=== PATIENT | female | born 1940 | race Caucasian/White ===

== ENCOUNTER 2018-03-03 10:22 | Outpatient (CLI) | payer MEDICARE, OTHER ==
[2018-03-03] VITALS (14 sets, daily range): BP systolic 90–149; BP diastolic 52–87
== END 2018-03-03 23:59 | disposition home or self-care (01) ==
LOC: CARD DIAG 10:22
PROVIDERS: ATTEND Internal Medicine Cardiovascular Disease
DX: R55 Syncope and collapse (principal)
CPT/HCPCS: 93660

== ENCOUNTER 2018-07-10 13:45 | Observation (INO) | payer MEDICARE, OTHER ==
[~2018-07-10] VITALS: Ht 162.6 cm; Wt 55.0 kg
[2018-07-10] MEDS ORDERED: mag hydrox/Alum hydrox/simeth 30ml oral suspension PO ONE (14:45)
[2018-07-10] MEDS ORDERED: normal saline 1000ml 1,000 ML IV ONE (14:45)
[2018-07-10] MEDS ORDERED: ondansetron/PF 4mg/2ml inj IV ONE (14:45)
[2018-07-10] MEDS ORDERED: LIDOcaine Viscous 15ml cup PO ONE (14:45)
[2018-07-10 15:14] LABS: BASOPHILS % (AUTO) 0.5 % (0-1); EOSINOPHILS % (AUTO) 0.6 % (0-6); HEMATOCRIT 34.5 % (35.0-45.0); HEMOGLOBIN 11.9 g/dl (12.0-16.0); LYMPHOCYTES # (AUTO) 0.5 X10'3 (1.1-4.8); LYMPHOCYTES % (AUTO) 8.2 % (21-51); MEAN CORPUSCULAR HEMOGLOBIN 30.5 PG (27.0-31.0); MEAN CORPUSCULAR HGB CONC 34.6 g/dL (33.0-36.5); MEAN CORPUSCULAR VOLUME 88.3 FL (78-98); MONOCYTES # (AUTO) 0.3 X10'3 (0-0.9); MONOCYTES % (AUTO) 5.2 % (2-12); NEUTROPHILS # (AUTO) 5.4 X10'3 (1.8-7.7); NEUTROPHILS % (AUTO) 85.5 % (42-75); PLATELET COUNT 190 X10'3 (140-440); RED BLOOD COUNT 3.91 X10'6 (4.20-5.60); RED CELL DISTRIBUTION WIDTH 15.8 % (11.5-14.5); WHITE BLOOD COUNT 6.3 X10'3 (4.5-11.0)
[2018-07-10 15:30] LABS: ALANINE AMINOTRANSFERASE 15 U/L (12-78); ALBUMIN 3.8 G/DL (3.4-5.0); ALKALINE PHOSPHATASE 106 IU/L (46-116); ANION GAP 9 (8-16); ASPARTATE AMINO TRANSFERASE 59 U/L (10-37); BILIRUBIN,TOTAL 0.5 MG/DL (0.1-1.0); BLOOD UREA NITROGEN 47 MG/DL (7-18); CALCIUM 10.1 MG/DL (8.5-10.1); CHLORIDE 103 MMOL/L (99-107); CREATININE 2.48 MG/DL (0.40-0.90); SODIUM 139 MMOL/L (135-145); TOTAL CARBON DIOXIDE 26.6 MMOL/L (24-32); TOTAL PROTEIN 7.5 G/DL (6.4-8.2); eGFR 19 ML/MIN
[2018-07-10 15:31] LABS: GLUCOSE 129 MG/DL (70-104)
[2018-07-10 15:32] LABS: LACTIC SEPSIS 1.2 MMOL/L (0.4-2.0)
[2018-07-10 16:20] LABS: TROPONIN I < 0.04 NG/ML (0.0-0.05)
[2018-07-10 16:24] LABS: CLARITY,URINE CLEAR (Clear); COLOR,URINE YELLOW (Yellow); GLUCOSE, URINE NEGATIVE (Neg); KETONES,URINE NEGATIVE (Neg); LEUKOCYTE ESTERASE ,URINE NEGATIVE (Neg); NITRITES, URINE NEGATIVE (Neg); OCCULT BLOOD,URINE NEGATIVE (Neg); PROTEIN,URINE >=300 mg/dl (Neg); UROBILINOGEN,URINE 0.2 E.U/dL (0.2-1.0)
[2018-07-10 16:25] LABS: UA COLLECTION TYPE CLN CATCH MIDSTREAM
[2018-07-10 16:29] LABS: BACTERIA,URINE NONE SEEN /HPF (Neg); MUCUS STRANDS FEW /LPF (Neg); RBC,URINE 0-2 /HPF (0-2); SQUAMOUS EPITHELIAL CELL,UR FEW /LPF (FEW); WBC,URINE 0-4 /HPF (0-4)
[2018-07-10] MEDS: normal saline 1000ml 1,000 ML IV SCH (17:01)
[2018-07-10] MEDS ORDERED: potassium Cl 40MEQ/NS 500ml 500 ML IV PRN (17:05)
[2018-07-10] MEDS ORDERED: potassium CL 10mEq/100ml bag 100 ML IV PRN (17:05)
[2018-07-10] MEDS ORDERED: potassium Cl 20 mEq SR tablet PO PRN ×2 (17:05)
[2018-07-10] MEDS ORDERED: mag hydrox/Alum hydrox/simeth 30ml oral suspension PO PRN (17:05)
[2018-07-10] MEDS ORDERED: magnesium hydroxide 30ml (MOM) UD suspension PO PRN (17:05)
[2018-07-10] MEDS ORDERED: ondansetron/PF 4mg/2ml inj IV PRN (17:05)
[2018-07-10] MEDS ORDERED: magnesium Cl slow-release 64mg tablet PO PRN (17:05)
[2018-07-10] MEDS ORDERED: magnesium 4gm in 100ml NS 100 ML IV PRN (17:05)
[2018-07-10] MEDS ORDERED: magnesium 2GM in 50ml NS 50 ML IV PRN (17:05)
[2018-07-10] MEDS ORDERED: ATOR20TA PO (17:12)
--- NOTE | 2018-07-10 17:31 | NUR ---
CALLED TO GIVE REPORT BUT RECEIVING NURSE UNAVAILABLE
[2018-07-10 18:00] VITALS: BP 157/78
[2018-07-10] MEDS ORDERED: hydrALAZINE 20mg/ml inj. IV PRN (19:30)
[2018-07-10] MEDS ORDERED: amLODIPine 5mg tablet PO ONE (19:30)
[2018-07-10] MEDS: heparin, porcine 5000 units/ml vial SQ SCH (20:16)
[2018-07-10] MEDS ORDERED: SODI650T29 PO (20:55)
[2018-07-10 22:00] VITALS: BP 157/90
[2018-07-10] MEDS ORDERED: CALC1CAP21 PO (23:00)
[2018-07-10] MEDS ORDERED: AMLO2.5T2 PO (23:00)
[2018-07-10] MEDS ORDERED: LOSA50TA64 PO (23:00)
[2018-07-10] MEDS ORDERED: CARB1TAB23 PO (23:00)
[2018-07-10] MEDS ORDERED: DENO60DI (23:00)
[2018-07-10] MEDS ORDERED: ASCO500C15 PO (23:00)
[2018-07-10] MEDS ORDERED: MONT10TA24 PO (23:00)
[2018-07-10] MEDS ORDERED: ESOM20CA PO (23:00)
[2018-07-10] MEDS ORDERED: POLY17PO10 PO (23:00)
[2018-07-10] MEDS ORDERED: FLAX1CAP4 PO (23:00)
[2018-07-10] MEDS ORDERED: LUTE10TA PO (23:00)
[2018-07-10] MEDS ORDERED: AMA100C PO (23:00)
[2018-07-10] MEDS ORDERED: ZEAX100P PO (23:00)
[2018-07-10] MEDS ORDERED: MULT-1085 PO (23:00)
[2018-07-10] MEDS ORDERED: [UNRECOGNIZED DRUG - OTHER] PO (23:00)
[2018-07-10] MEDS ORDERED: [UNRECOGNIZED DRUG - OTHER] PO (23:00)
[2018-07-10] MEDS ORDERED: ASPI-436 PO (23:00)
[2018-07-11] MEDS: normal saline 1000ml 1,000 ML IV SCH ×3 (03:01→21:15)
[2018-07-11 05:41] LABS: ALBUMIN 3.6 G/DL (3.4-5.0); ANION GAP 9 (8-16); BLOOD UREA NITROGEN 37 MG/DL (7-18); BUN/CREATININE RATIO 16.8 (6.6-38.0); CALCIUM 9.2 MG/DL (8.5-10.1); CHLORIDE 106 MMOL/L (99-107); MAGNESIUM 2.1 MG/DL (1.5-2.4); POTASSIUM 3.9 MMOL/L (3.5-5.1); SODIUM 139 MMOL/L (135-145); TOTAL CARBON DIOXIDE 24.2 MMOL/L (24-32); eGFR 22 ML/MIN
[2018-07-11 05:43] LABS: GLUCOSE 99 MG/DL (70-104)
[2018-07-11 06:00] VITALS: BP 162/75
[2018-07-11 06:07] LABS: HEMATOCRIT 36.6 % (35.0-45.0); HEMOGLOBIN 12.2 g/dl (12.0-16.0); RED BLOOD COUNT 4.09 X10'6 (4.20-5.60); WHITE BLOOD COUNT 5.4 X10'3 (4.5-11.0)
[2018-07-11 06:08] LABS: BASOPHILS % (AUTO) 0.6 % (0-1); EOSINOPHILS # (AUTO) 0.1 X10'3 (0-0.9); EOSINOPHILS % (AUTO) 1.1 % (0-6); LYMPHOCYTES # (AUTO) 0.5 X10'3 (1.1-4.8); MEAN CORPUSCULAR HEMOGLOBIN 29.9 PG (27.0-31.0); MEAN CORPUSCULAR HGB CONC 33.4 g/dL (33.0-36.5); MEAN CORPUSCULAR VOLUME 89.5 FL (78-98); MEAN PLATELET VOLUME 7.1 FL (7.4-10.4); MONOCYTES # (AUTO) 0.2 X10'3 (0-0.9); MONOCYTES % (AUTO) 3.8 % (2-12); NEUTROPHILS # (AUTO) 4.6 X10'3 (1.8-7.7); NEUTROPHILS % (AUTO) 84.5 % (42-75); PLATELET COUNT 182 X10'3 (140-440); RED CELL DISTRIBUTION WIDTH 15.5 % (11.5-14.5)
--- NOTE | 2018-07-11 06:13 | NUR ---
report given to christie Wood.
[2018-07-11] MEDS: K and/or MAG REPLACEMENT MC SCH (06:54)
[2018-07-11] MEDS: heparin, porcine 5000 units/ml vial SQ SCH ×2 (07:48→21:04)
[2018-07-11] MEDS ORDERED: amLODIPine 5mg tablet PO SCH (08:00)
[2018-07-11 10:33] VITALS: BP 161/71
[2018-07-11] MEDS ORDERED: hyDRALAzine 10mg tablet PO PRN (11:55)
[2018-07-11] MEDS: carbidoba-levodopa 25-100mg tablet PO SCH ×2 (14:16→21:03)
[2018-07-11 18:07] VITALS: BP 137/63
--- NOTE | 2018-07-11 18:43 | NUR ---
Problems reprioritized. Patient report given, questions answered & plan of care reviewed with Karissa FERRARI.
[2018-07-11] MEDS ORDERED: ASCORBIC ACID PO SCH (20:00)
[2018-07-11] MEDS ORDERED: OMEGA3 PO SCH (21:00)
[2018-07-11] MEDS ORDERED: FATTY ACID PO SCH (21:00)
[2018-07-11] MEDS ORDERED: FLAXSEED PO SCH (21:00)
[2018-07-11] MEDS ORDERED: [UNRECOGNIZED DRUG - OTHER] PO SCH (21:00)
[2018-07-11] MEDS ORDERED: montelukast 10mg tablet PO SCH (21:00)
[2018-07-11] MEDS: sodium bicarbonate 650mg tablet PO SCH (21:02)
[2018-07-11] MEDS: ascorbic acid 500mg tablet PO SCH (21:03)
[2018-07-11] MEDS: amantadine 100 MG capsule PO SCH (21:03)
[2018-07-11 22:00] VITALS: BP 169/74
[2018-07-12 05:59] LABS: BASOPHILS % (AUTO) 0.7 % (0-1); EOSINOPHILS # (AUTO) 0.1 X10'3 (0-0.9); EOSINOPHILS % (AUTO) 2.1 % (0-6); HEMATOCRIT 32.7 % (35.0-45.0); HEMOGLOBIN 11.1 g/dl (12.0-16.0); LYMPHOCYTES # (AUTO) 0.8 X10'3 (1.1-4.8); LYMPHOCYTES % (AUTO) 14.9 % (21-51); MEAN CORPUSCULAR HEMOGLOBIN 29.8 PG (27.0-31.0); MEAN CORPUSCULAR HGB CONC 33.8 g/dL (33.0-36.5); MEAN CORPUSCULAR VOLUME 88.1 FL (78-98); MEAN PLATELET VOLUME 6.9 FL (7.4-10.4); MONOCYTES # (AUTO) 0.3 X10'3 (0-0.9); NEUTROPHILS # (AUTO) 3.9 X10'3 (1.8-7.7); NEUTROPHILS % (AUTO) 76.3 % (42-75); PLATELET COUNT 175 X10'3 (140-440); RED BLOOD COUNT 3.72 X10'6 (4.20-5.60); WHITE BLOOD COUNT 5.1 X10'3 (4.5-11.0)
[2018-07-12 06:00] VITALS: BP 149/66
[2018-07-12 06:14] LABS: ALBUMIN 3.2 G/DL (3.4-5.0); ANION GAP 10 (8-16); BLOOD UREA NITROGEN 34 MG/DL (7-18); CALCIUM 8.2 MG/DL (8.5-10.1); CHLORIDE 108 MMOL/L (99-107); CREATININE 2.27 MG/DL (0.40-0.90); MAGNESIUM 2.1 MG/DL (1.5-2.4); POTASSIUM 3.9 MMOL/L (3.5-5.1); SODIUM 140 MMOL/L (135-145); TOTAL CARBON DIOXIDE 21.7 MMOL/L (24-32); eGFR 21 ML/MIN
[2018-07-12 06:17] LABS: GLUCOSE 91 MG/DL (70-104)
[2018-07-12] MEDS ORDERED: pantoprazole 40mg Tablet.DR PO SCH (07:30)
[2018-07-12] MEDS ORDERED: atorvastatin 20mg tablet PO SCH (08:00)
[2018-07-12] MEDS ORDERED: non-formulary drug (Atorvastatin Calcium (Lipitor) 1 TAB) PO SCH (08:00)
[2018-07-12] MEDS ORDERED: [UNRECOGNIZED DRUG - OTHER] PO SCH (08:00)
[2018-07-12] MEDS ORDERED: non-formulary drug (Multivitamin (Multi Vitamin Daily) 1 EACH) PO SCH (08:00)
[2018-07-12] MEDS ORDERED: amLODIPine 2.5mg tablet PO SCH (08:00)
[2018-07-12] MEDS ORDERED: non-formulary drug (Esomeprazole Magnesium (Nexium) 1 CAP) PO SCH (08:00)
[2018-07-12] MEDS ORDERED: ZEAXANTHIN PO SCH (08:00)
[2018-07-12] MEDS ORDERED: multivitamins, therapeutics tablet PO SCH (08:00)
[2018-07-12] MEDS: K and/or MAG REPLACEMENT MC SCH (08:00)
[2018-07-12] MEDS ORDERED: [UNRECOGNIZED DRUG - OTHER] PO SCH (08:00)
[2018-07-12] MEDS: carbidoba-levodopa 25-100mg tablet PO SCH ×2 (08:43→14:17)
[2018-07-12] MEDS: sodium bicarbonate 650mg tablet PO SCH (08:44)
[2018-07-12] MEDS: ascorbic acid 500mg tablet PO SCH (08:44)
[2018-07-12] MEDS: heparin, porcine 5000 units/ml vial SQ SCH (08:46)
[2018-07-12] MEDS: normal saline 1000ml 1,000 ML IV SCH (09:01)
[2018-07-12] MEDS: amantadine 100 MG capsule PO SCH (09:26)
[2018-07-12 14:20] VITALS: BP 158/86
[2018-07-12] MEDS ORDERED: CARB1TAB23 PO (16:02)
--- NOTE | 2018-07-12 17:38 | NUR ---
Pt DC home w/family. VSS, denies pain, SOB, resp distress, N/V, vertigo at DC. All DC documents signed. DC re-cap of pt stay/medications given to pt. pt escorted JACE in WC by [facility] staff . Pt transferred safely into personal vehicle to go home. pt thanked [facility] staff for her care.
== END 2018-07-12 17:20 | disposition home health service (06) ==
LOC: ER 13:45 → ORTHO 4S 17:39 → CMPBEDREQ 07-11 19:40
PROVIDERS: ADMIT Hospitalist; ATTEND Hospitalist
DX: N17.9 Acute kidney failure, unspecified (principal); I12.9 Hypertensive chronic kidney disease with stage 1 through stage 4 chronic kidney disease, or unspecified chronic kidney disease; N18.4 Chronic kidney disease, stage 4 (severe); G20 Parkinson's disease; C90.00 Multiple myeloma not having achieved remission; Z86.73 Personal history of transient ischemic attack (TIA), and cerebral infarction without residual deficits; N39.0 Urinary tract infection, site not specified; R42 Dizziness and giddiness; R41.0 Disorientation, unspecified; Z79.82 Long term (current) use of aspirin; Z79.899 Other long term (current) drug therapy
CPT/HCPCS: 36415; 70544; 70551; 71045; 80048; 80053; 81001; 82140; 83605; 83735; 84484; 85025; 85610; 87070; 93005; 96361; 96372; 96374; 97116; 97161; 97530; 99284; G0378; J1644; J2405; J7030

== ENCOUNTER 2018-07-27 18:23 | Emergency (ER) | payer MEDICARE, OTHER ==
[~2018-07-27] VITALS: Ht 162.6 cm; Wt 58.6 kg
[~2018-07-27 18:23] MED LIST: AMA100C PO; AMLO2.5T2 PO; ASCO500C15 PO; ASPI-436 PO; ATOR20TA PO; CALC1CAP21 PO; CARB1TAB23 PO; DENO60DI; ESOM20CA PO; FLAX1CAP4 PO; LUTE10TA PO; MONT10TA24 PO; MULT-1085 PO; POLY17PO10 PO; SODI650T29 PO; ZEAX100P PO; [UNRECOGNIZED DRUG - OTHER] PO; [UNRECOGNIZED DRUG - OTHER] PO
--- NOTE | 2018-07-27 18:53 | NUR ---
Spoke to ALINA Gray regarding patient situation. CT head ordered.
[2018-07-27 21:18] VITALS: BP 178/88
== END 2018-07-27 21:21 | disposition home or self-care (01) ==
LOC: ER 18:24
DX: S09.90XA Unspecified injury of head, initial encounter (principal); N18.9 Chronic kidney disease, unspecified; G20 Parkinson's disease; Z79.82 Long term (current) use of aspirin; Z79.899 Other long term (current) drug therapy; Z88.6 Allergy status to analgesic agent; Z88.5 Allergy status to narcotic agent; Z88.0 Allergy status to penicillin; Z88.8 Allergy status to other drugs, medicaments and biological substances; W01.198A Fall on same level from slipping, tripping and stumbling with subsequent striking against other object, initial encounter; Y93.89 Activity, other specified; Y92.89 Other specified places as the place of occurrence of the external cause; Y99.9 Unspecified external cause status
CPT/HCPCS: 70450; 99284

== ENCOUNTER 2018-07-27 22:31 | Emergency (ER) | payer MEDICARE, OTHER ==
[~2018-07-27] VITALS: Ht 162.6 cm; Wt 58.1 kg
[2018-07-28 01:11] LABS: BASOPHILS # (AUTO) 0.1 X10'3 (0-0.2); BASOPHILS % (AUTO) 0.6 % (0-1); EOSINOPHILS # (AUTO) 0.1 X10'3 (0-0.9); HEMATOCRIT 34.5 % (35.0-45.0); HEMOGLOBIN 11.7 g/dl (12.0-16.0); LYMPHOCYTES # (AUTO) 0.8 X10'3 (1.1-4.8); LYMPHOCYTES % (AUTO) 9.7 % (21-51); MEAN CORPUSCULAR HGB CONC 33.8 g/dL (33.0-36.5); MEAN CORPUSCULAR VOLUME 88.7 FL (78-98); MEAN PLATELET VOLUME 7.2 FL (7.4-10.4); MONOCYTES # (AUTO) 0.4 X10'3 (0-0.9); MONOCYTES % (AUTO) 5.2 % (2-12); NEUTROPHILS # (AUTO) 6.5 X10'3 (1.8-7.7); NEUTROPHILS % (AUTO) 83.5 % (42-75); PLATELET COUNT 198 X10'3 (140-440); RED BLOOD COUNT 3.89 X10'6 (4.20-5.60); RED CELL DISTRIBUTION WIDTH 15.6 % (11.5-14.5); WHITE BLOOD COUNT 7.8 X10'3 (4.5-11.0)
[2018-07-28 01:14] LABS: ALANINE AMINOTRANSFERASE 13 U/L (12-78); ALBUMIN 3.8 G/DL (3.4-5.0); ALBUMIN/GLOBULIN RATIO 1.1 (1.1-1.5); ALKALINE PHOSPHATASE 102 IU/L (46-116); ANION GAP 7 (8-16); ASPARTATE AMINO TRANSFERASE 51 U/L (10-37); BILIRUBIN,TOTAL 0.5 MG/DL (0.1-1.0); BLOOD UREA NITROGEN 66 MG/DL (7-18); BUN/CREATININE RATIO 21.6 (6.6-38.0); CALCIUM 9.3 MG/DL (8.5-10.1); CHLORIDE 102 MMOL/L (99-107); CREATININE 3.05 MG/DL (0.40-0.90); POTASSIUM 3.7 MMOL/L (3.5-5.1); SODIUM 137 MMOL/L (135-145); TOTAL CARBON DIOXIDE 28.5 MMOL/L (24-32); TOTAL PROTEIN 7.4 G/DL (6.4-8.2); eGFR 15 ML/MIN
[2018-07-28 01:16] LABS: GLUCOSE 134 MG/DL (70-104)
[2018-07-28 01:17] LABS: PARTIAL THROMBOPLASTIN TIME 28 SECONDS (22-32); TROPONIN I < 0.04 NG/ML (0.0-0.05)
[2018-07-28 01:18] LABS: ETHANOL < 0.010 GM/DL (0.0-0.010)
[2018-07-28 01:54] VITALS: BP 164/79
[2018-07-28 02:20] LABS: CLARITY,URINE CLEAR (Clear); COLOR,URINE YELLOW (Yellow); GLUCOSE, URINE NEGATIVE (Neg); KETONES,URINE NEGATIVE (Neg); LEUKOCYTE ESTERASE ,URINE NEGATIVE (Neg); NITRITES, URINE NEGATIVE (Neg); OCCULT BLOOD,URINE NEGATIVE (Neg); PROTEIN,URINE 100 mg/dl (Neg); UROBILINOGEN,URINE 0.2 E.U/dL (0.2-1.0)
[2018-07-28 02:21] LABS: UA COLLECTION TYPE VOIDED
[2018-07-28 02:38] LABS: BACTERIA,URINE NONE SEEN /HPF (Neg); RBC,URINE NONE SEEN /HPF (0-2); SQUAMOUS EPITHELIAL CELL,UR FEW /LPF (FEW); WBC,URINE 0-4 /HPF (0-4)
== END 2018-07-28 02:21 | disposition home or self-care (01) ==
LOC: ER 22:31
DX: S00.03XA Contusion of scalp, initial encounter (principal); G20 Parkinson's disease; N18.9 Chronic kidney disease, unspecified; Z79.82 Long term (current) use of aspirin; Z79.899 Other long term (current) drug therapy; Z88.6 Allergy status to analgesic agent; Z88.0 Allergy status to penicillin; Z88.5 Allergy status to narcotic agent; Z88.8 Allergy status to other drugs, medicaments and biological substances; W01.198A Fall on same level from slipping, tripping and stumbling with subsequent striking against other object, initial encounter; Y93.89 Activity, other specified; Y92.89 Other specified places as the place of occurrence of the external cause; Y99.9 Unspecified external cause status
CPT/HCPCS: 36415; 70450; 71045; 80053; 80320; 81001; 84484; 85025; 85610; 85730; 99284

== ENCOUNTER 2018-08-25 10:28 | Emergency (ER) | payer MEDICARE, OTHER ==
[~2018-08-25] VITALS: Ht 162.6 cm; Wt 57.0 kg
[2018-08-25 11:56] LABS: BASOPHILS % (AUTO) 0.3 % (0-1); EOSINOPHILS % (AUTO) 0.5 % (0-6); HEMATOCRIT 31.8 % (35.0-45.0); HEMOGLOBIN 10.7 g/dl (12.0-16.0); LYMPHOCYTES # (AUTO) 0.5 X10'3 (1.1-4.8); LYMPHOCYTES % (AUTO) 5.6 % (21-51); MEAN CORPUSCULAR HEMOGLOBIN 30.2 PG (27.0-31.0); MEAN CORPUSCULAR HGB CONC 33.7 g/dL (33.0-36.5); MEAN CORPUSCULAR VOLUME 89.7 FL (78-98); MEAN PLATELET VOLUME 7.7 FL (7.4-10.4); MONOCYTES # (AUTO) 0.5 X10'3 (0-0.9); MONOCYTES % (AUTO) 5.4 % (2-12); NEUTROPHILS # (AUTO) 7.7 X10'3 (1.8-7.7); NEUTROPHILS % (AUTO) 88.2 % (42-75); PLATELET COUNT 206 X10'3 (140-440); RED BLOOD COUNT 3.54 X10'6 (4.20-5.60); RED CELL DISTRIBUTION WIDTH 15.7 % (11.5-14.5); WHITE BLOOD COUNT 8.8 X10'3 (4.5-11.0)
[2018-08-25 12:08] LABS: ALANINE AMINOTRANSFERASE 22 U/L (12-78); ALBUMIN 3.7 G/DL (3.4-5.0); ALBUMIN/GLOBULIN RATIO 1.1 (1.1-1.5); ALKALINE PHOSPHATASE 131 IU/L (46-116); ANION GAP 9 (8-16); ASPARTATE AMINO TRANSFERASE 86 U/L (10-37); BILIRUBIN,TOTAL 0.9 MG/DL (0.1-1.0); BLOOD UREA NITROGEN 47 MG/DL (7-18); BUN/CREATININE RATIO 15.9 (6.6-38.0); CALCIUM 9.5 MG/DL (8.5-10.1); CHLORIDE 106 MMOL/L (99-107); CREATININE 2.95 MG/DL (0.40-0.90); POTASSIUM 4.1 MMOL/L (3.5-5.1); SODIUM 141 MMOL/L (135-145); TOTAL CARBON DIOXIDE 25.7 MMOL/L (24-32); TOTAL PROTEIN 7.2 G/DL (6.4-8.2); eGFR 15 ML/MIN
[2018-08-25 12:09] LABS: GLUCOSE 97 MG/DL (70-104)
[2018-08-25] MEDS ORDERED: morphine 4 MG/ML inj SYRINge IV ONE (13:05)
[2018-08-25 15:07] VITALS: BP 158/83
[2018-08-25] MEDS ORDERED: LIDOcaine 5% patch TP STA (15:43)
[2018-08-25] MEDS ORDERED: LIDO700A32 TP (15:58)
== END 2018-08-25 16:14 | disposition home or self-care (01) ==
LOC: ER 10:29
DX: R10.9 Unspecified abdominal pain (principal); G20 Parkinson's disease; R74.0 Nonspecific elevation of levels of transaminase and lactic acid dehydrogenase [LDH]; N18.9 Chronic kidney disease, unspecified; Z79.899 Other long term (current) drug therapy; Z79.82 Long term (current) use of aspirin; Z88.5 Allergy status to narcotic agent; Z88.6 Allergy status to analgesic agent; Z88.8 Allergy status to other drugs, medicaments and biological substances; Z88.1 Allergy status to other antibiotic agents; W18.49XA Other slipping, tripping and stumbling without falling, initial encounter; Y93.89 Activity, other specified; Y92.89 Other specified places as the place of occurrence of the external cause; Y99.9 Unspecified external cause status
CPT/HCPCS: 36415; 74176; 80053; 85025; 85610; 99284; J2270

== ENCOUNTER 2018-09-01 03:56 | Emergency (ER) | payer MEDICARE, OTHER ==
[~2018-09-01] VITALS: Ht 162.6 cm; Wt 64.0 kg
[~2018-09-01 03:56] MED LIST changes: +LIDO700A32 TP
[2018-09-01] MEDS ORDERED: ALBU18HF2 INH (04:07)
[2018-09-01] MEDS ORDERED: DOXY100C43 PO (04:07)
[2018-09-01 04:53] VITALS: BP 142/86
== END 2018-09-01 05:21 | disposition home or self-care (01) ==
LOC: ER 03:57
DX: J20.9 Acute bronchitis, unspecified (principal); N18.9 Chronic kidney disease, unspecified; G20 Parkinson's disease; Z88.6 Allergy status to analgesic agent; Z79.899 Other long term (current) drug therapy; Z88.8 Allergy status to other drugs, medicaments and biological substances; Z88.0 Allergy status to penicillin; Z79.82 Long term (current) use of aspirin; Z87.440 Personal history of urinary (tract) infections
CPT/HCPCS: 99284

== ENCOUNTER 2018-09-09 23:10 | Inpatient (IN) | payer MEDICARE, OTHER ==
[~2018-09-09] VITALS: Ht 167.6 cm; Wt 60.0 kg
[~2018-09-09 23:10] MED LIST changes: +ALBU18HF2 INH; +DOXY100C43 PO
[2018-09-10] VITALS (9 sets, daily range): BP systolic 123–166; BP diastolic 45–83
[2018-09-10 00:09] LABS: BASOPHILS % (AUTO) 0.1 % (0-1); EOSINOPHILS % (AUTO) 0 % (0-6); HEMATOCRIT 23.5 % (35.0-45.0); LYMPHOCYTES # (AUTO) 0.3 X10'3 (1.1-4.8); MEAN CORPUSCULAR HEMOGLOBIN 30.4 PG (27.0-31.0); MEAN CORPUSCULAR HGB CONC 34.1 g/dL (33.0-36.5); MEAN CORPUSCULAR VOLUME 89.2 FL (78-98); MEAN PLATELET VOLUME 7.6 FL (7.4-10.4); MONOCYTES # (AUTO) 0.5 X10'3 (0-0.9); NEUTROPHILS # (AUTO) 15.8 X10'3 (1.8-7.7); NEUTROPHILS % (AUTO) 94.9 % (42-75); PLATELET COUNT 251 X10'3 (140-440); RED BLOOD COUNT 2.64 X10'6 (4.20-5.60); RED CELL DISTRIBUTION WIDTH 15.8 % (11.5-14.5); WHITE BLOOD COUNT 16.7 X10'3 (4.5-11.0)
[2018-09-10 00:28] LABS: ALANINE AMINOTRANSFERASE 68 U/L (12-78); ALBUMIN 2.6 G/DL (3.4-5.0); ALBUMIN/GLOBULIN RATIO 0.8 (1.1-1.5); ALKALINE PHOSPHATASE 127 IU/L (46-116); ANION GAP 16 (8-16); ASPARTATE AMINO TRANSFERASE 170 U/L (10-37); BILIRUBIN,TOTAL 0.5 MG/DL (0.1-1.0); BLOOD UREA NITROGEN 103 MG/DL (7-18); BUN/CREATININE RATIO 24.1 (6.6-38.0); CALCIUM 10.3 MG/DL (8.5-10.1); CHLORIDE 99 MMOL/L (99-107); CREATININE 4.28 MG/DL (0.40-0.90); GLUCOSE 121 MG/DL (70-104); POTASSIUM 4.8 MMOL/L (3.5-5.1); SODIUM 138 MMOL/L (135-145); TOTAL CARBON DIOXIDE 23.5 MMOL/L (24-32); TOTAL PROTEIN 5.7 G/DL (6.4-8.2); eGFR 10 ML/MIN
[2018-09-10 00:36] LABS: MAGNESIUM 3.1 MG/DL (1.5-2.4)
[2018-09-10] MEDS ORDERED: normal saline 1000ML IV soln IVB ONE (01:30)
[2018-09-10] MEDS ORDERED: aspirin 300mg supp.rect RC ONE (01:40)
[2018-09-10] MEDS ORDERED: levoFLOXACIN-Levaquin 750MG/D5 150 ML IV STA (03:14)
[2018-09-10] MEDS ORDERED: pantoprazole IV 80 MG in normal saline 100ml IV soln 100 ML IV ONE (04:20)
[2018-09-10] MEDS ORDERED: pantoprazole 40MG/NS 100ML BAG 100 ML IV ONE (04:20)
[2018-09-10] MEDS ORDERED: ESOMEPRAZOLE 40 MG VIAL IV ONE (04:25)
[2018-09-10] MEDS ORDERED: potassium CL 10mEq/100ml bag 100 ML IV PRN ×2 (04:40)
[2018-09-10] MEDS ORDERED: potassium Cl 20 mEq SR tablet PO PRN ×2 (04:40)
[2018-09-10] MEDS ORDERED: magnesium Cl slow-release 64mg tablet PO PRN (04:40)
[2018-09-10] MEDS ORDERED: magnesium 2GM in 50ml NS 50 ML IV PRN (04:40)
[2018-09-10] MEDS ORDERED: ondansetron/PF 4mg/2ml inj IV PRN (04:40)
[2018-09-10] MEDS ORDERED: magnesium 4gm in 100ml NS 100 ML IV PRN (04:40)
[2018-09-10] MEDS: normal saline 1000ml 1,000 ML IV SCH ×2 (05:28→16:36)
[2018-09-10 06:37] LABS: GASTRIC OCCULT BLOOD POSITIVE (Neg)
--- NOTE | 2018-09-10 07:00 | NUR ---
Patient in room JOSUE 346. I have received report from Caren FERRARI and had the opportunity to ask questions and assume patient care.
[2018-09-10] MEDS: K and/or MAG REPLACEMENT MC SCH (08:00)
[2018-09-10] MEDS ORDERED: AMLO5TAB4 PO (10:47)
[2018-09-10] MEDS ORDERED: CARB-87 PO (10:47)
[2018-09-10] MEDS ORDERED: SODI650T29 PO (10:48)
[2018-09-10 15:26] LABS: BASOPHILS % (AUTO) 0 % (0-1); EOSINOPHILS % (AUTO) 0 % (0-6); LYMPHOCYTES # (AUTO) 0.3 X10'3 (1.1-4.8); LYMPHOCYTES % (AUTO) 1.6 % (21-51); MEAN CORPUSCULAR HEMOGLOBIN 30.6 PG (27.0-31.0); MEAN CORPUSCULAR HGB CONC 34.5 g/dL (33.0-36.5); MEAN CORPUSCULAR VOLUME 88.7 FL (78-98); MEAN PLATELET VOLUME 7.6 FL (7.4-10.4); MONOCYTES # (AUTO) 0.4 X10'3 (0-0.9); MONOCYTES % (AUTO) 1.9 % (2-12); NEUTROPHILS % (AUTO) 96.5 % (42-75); PLATELET COUNT 195 X10'3 (140-440); RED BLOOD COUNT 2.12 X10'6 (4.20-5.60); RED CELL DISTRIBUTION WIDTH 15.6 % (11.5-14.5); WHITE BLOOD COUNT 20.7 X10'3 (4.5-11.0)
[2018-09-10 15:32] LABS: HEMATOCRIT 18.8 % (35.0-45.0); HEMOGLOBIN 6.5 g/dl (12.0-16.0)
--- NOTE | 2018-09-10 19:00 | NUR ---
pt inc urine and smear of stool pumpkin colored, turned side to side.
--- NOTE | 2018-09-10 19:00 | NUR ---
Patient in room JOSUE 346. I have received report from Jaylan Gallardo and had the opportunity to ask questions and assume patient care. Addendum: 09/10/18 at 1927 by Cyndie Merrill RN Amended: Links added.
--- NOTE | 2018-09-10 19:00 | NUR ---
Problems reprioritized. Patient report given, questions answered & plan of care reviewed with Cyndie FERRARI.
--- NOTE | 2018-09-10 19:50 | NUR ---
1st unit of blood obtained and hung. pt teaching done and started infusion. sats better with 02 in the mouth and sat monitor on left hand index finger.
[2018-09-10] MEDS ORDERED: pantoprazole 40 MG vial IV SCH (20:00)
[2018-09-10] MEDS: ESOMEPRAZOLE 40 MG VIAL IV SCH (21:20)
--- NOTE | 2018-09-10 21:25 | NUR ---
vss pt resting apperas comfortable sats up to 92-94% now.
--- NOTE | 2018-09-10 23:05 | NUR ---
blood completed no s&s of rejection.
[2018-09-11] VITALS (10 sets, daily range): BP systolic 123–181; BP diastolic 50–112
--- NOTE | 2018-09-11 00:28 | NUR ---
talked to Dr Hu regarding pt and no orders aware of h&h that she got blood. and of vitals.
--- NOTE | 2018-09-11 02:05 | NUR ---
pt inc of urine and stool skin care done and repositioned in bed for comfort.
--- NOTE | 2018-09-11 04:00 | NUR ---
pt inc of urine skin care done and turned. pt less lethargic. not answering questions but following simple clear directions with turning etc.
[2018-09-11 04:42] LABS: BASOPHILS % (AUTO) 0.1 % (0-1); EOSINOPHILS % (AUTO) 0.1 % (0-6); HEMATOCRIT 22.6 % (35.0-45.0); HEMOGLOBIN 7.8 g/dl (12.0-16.0); LYMPHOCYTES # (AUTO) 0.3 X10'3 (1.1-4.8); LYMPHOCYTES % (AUTO) 1.9 % (21-51); MEAN CORPUSCULAR HEMOGLOBIN 29.8 PG (27.0-31.0); MEAN CORPUSCULAR HGB CONC 34.6 g/dL (33.0-36.5); MEAN CORPUSCULAR VOLUME 86.1 FL (78-98); MEAN PLATELET VOLUME 7.5 FL (7.4-10.4); MONOCYTES # (AUTO) 0.5 X10'3 (0-0.9); MONOCYTES % (AUTO) 2.8 % (2-12); NEUTROPHILS % (AUTO) 95.1 % (42-75); PLATELET COUNT 174 X10'3 (140-440); RED BLOOD COUNT 2.63 X10'6 (4.20-5.60); RED CELL DISTRIBUTION WIDTH 17.7 % (11.5-14.5); WHITE BLOOD COUNT 17.9 X10'3 (4.5-11.0)
[2018-09-11 04:45] LABS: ALBUMIN 2.4 G/DL (3.4-5.0); ANION GAP 13 (8-16); BLOOD UREA NITROGEN 117 MG/DL (7-18); BUN/CREATININE RATIO 26.8 (6.6-38.0); CALCIUM 9.3 MG/DL (8.5-10.1); CHLORIDE 107 MMOL/L (99-107); CREATININE 4.37 MG/DL (0.40-0.90); GLUCOSE 101 MG/DL (70-104); POTASSIUM 4.1 MMOL/L (3.5-5.1); SODIUM 143 MMOL/L (135-145); TOTAL CARBON DIOXIDE 22.7 MMOL/L (24-32); eGFR 10 ML/MIN
[2018-09-11] MEDS: normal saline 1000ml 1,000 ML IV SCH ×2 (05:40→10:15)
--- NOTE | 2018-09-11 06:47 | NUR ---
Patient in room JOSUE 346. I have received report from VONDA LOPEZ and had the opportunity to ask questions and assume patient care.
[2018-09-11] MEDS: K and/or MAG REPLACEMENT MC SCH (08:00)
[2018-09-11] MEDS: ESOMEPRAZOLE 40 MG VIAL IV SCH ×2 (08:44→19:44)
[2018-09-11 11:40] LABS: CLARITY,URINE CLEAR (Clear); COLOR,URINE STRAW (Yellow); GLUCOSE, URINE NEGATIVE (Neg); KETONES,URINE NEGATIVE (Neg); LEUKOCYTE ESTERASE ,URINE NEGATIVE (Neg); NITRITES, URINE NEGATIVE (Neg); OCCULT BLOOD,URINE TRACE-INTACT (Neg); PROTEIN,URINE 30 mg/dl (Neg); UROBILINOGEN,URINE 0.2 E.U/dL (0.2-1.0)
[2018-09-11 11:55] LABS: UA COLLECTION TYPE NON-SPECIFIED
[2018-09-11 12:06] LABS: BACTERIA,URINE FEW /HPF (Neg); MUCUS STRANDS FEW /LPF (Neg); RBC,URINE 0-2 /HPF (0-2); SQUAMOUS EPITHELIAL CELL,UR FEW /LPF (FEW); WBC,URINE 0-4 /HPF (0-4)
--- NOTE | 2018-09-11 13:21 | NUR ---
Pt went to GI lab.
[2018-09-11] MEDS ORDERED: MIDAZolam 5mg/5ml vial ONE (13:37)
[2018-09-11] MEDS ORDERED: fentaNYL/PF 50MCG/1 ML 2ML syringe ONE (13:37)
[2018-09-11] MEDS ORDERED: LIDOcaine Viscous 15ml cup ONE (13:37)
--- NOTE | 2018-09-11 13:45 | NUR ---
Malnutrition/calorie count consults: Pt admit w/ moderate SBO per CT. R NG in place to suction low ouptut noted but coffee ground per MD note. Pending EGD for possible GIB w/ acute anemia per MD note. At this time calorie count is not possible since NPO given DX. Noted to have small smears today in EMR. Pt has no significant edema/wounds, weakness, wt loss hx since 08/27 admit and does not meet minimum 2 malnutrition criteria. Will monitor for GI results, diet advancement, and additional malnutrition criteria this admit. Rec: 1. once appropriate; advance diet per MD to low-residue 2. monitor for ONS needs once PO 3. wt per rx Addendum: 09/11/18 at [address] Amended: Links added.
--- NOTE | 2018-09-11 14:56 | NUR ---
Patient returned to room 346b via bed accompanied x1 staff. Patient is A&O and has no complaints. VSS. Will continue to monitor.
[2018-09-11 16:05] LABS: BASOPHILS % (AUTO) 0 % (0-1); EOSINOPHILS % (AUTO) 0.3 % (0-6); HEMATOCRIT 25.2 % (35.0-45.0); HEMOGLOBIN 8.7 g/dl (12.0-16.0); LYMPHOCYTES # (AUTO) 0.3 X10'3 (1.1-4.8); LYMPHOCYTES % (AUTO) 2.1 % (21-51); MEAN CORPUSCULAR HEMOGLOBIN 29.6 PG (27.0-31.0); MEAN CORPUSCULAR HGB CONC 34.5 g/dL (33.0-36.5); MEAN CORPUSCULAR VOLUME 85.7 FL (78-98); MEAN PLATELET VOLUME 7.4 FL (7.4-10.4); MONOCYTES # (AUTO) 0.5 X10'3 (0-0.9); MONOCYTES % (AUTO) 2.8 % (2-12); NEUTROPHILS # (AUTO) 15.5 X10'3 (1.8-7.7); NEUTROPHILS % (AUTO) 94.8 % (42-75); PLATELET COUNT 185 X10'3 (140-440); RED BLOOD COUNT 2.94 X10'6 (4.20-5.60); RED CELL DISTRIBUTION WIDTH 17.3 % (11.5-14.5); WHITE BLOOD COUNT 16.4 X10'3 (4.5-11.0)
--- NOTE | 2018-09-11 18:26 | NUR ---
Problems reprioritized. Patient report given, questions answered & plan of care reviewed with VONDA Agee.
--- NOTE | 2018-09-11 18:56 | NUR ---
Patient in room JOSUE 346. I have received report from Jazmin Gallardo and had the opportunity to ask questions and assume patient care. Addendum: 09/11/18 at 1856 by Cyndie Merrill RN Amended: Links added.
--- NOTE | 2018-09-11 20:00 | NUR ---
inc urine and med to large pumpkin colored stool soft formed. positioned to comfort.
--- NOTE | 2018-09-11 22:15 | NUR ---
PT'S SISTER JUST FEW IN TO SEE HER AND DAUGHTER BROUGHT HER IN. DAUGHTER AWARE SAW EGD PICTURES WITH PT PERMISSION AND VISITING WITH HER.
--- NOTE | 2018-09-11 22:22 | NUR ---
PT ALERT NO COMPLAINTS AT THIS TIME.
[2018-09-12] VITALS: BP 182/68
--- NOTE | 2018-09-12 | NUR ---
repositioned after skin care done on pt.
--- NOTE | 2018-09-12 00:30 | NUR ---
pt inc of urine and stool. skin care done positioned to comfort.
[2018-09-12] MEDS: normal saline 1000ml 1,000 ML IV SCH ×2 (00:53→13:49)
--- NOTE | 2018-09-12 01:58 | NUR ---
positioned to comfort battery changed to tele.
--- NOTE | 2018-09-12 04:00 | NUR ---
pt inc of urine and stool skin care done and positioned to comfort.
[2018-09-12 04:58] LABS: ALBUMIN 2.4 G/DL (3.4-5.0); ANION GAP 10 (8-16); BLOOD UREA NITROGEN 103 MG/DL (7-18); BUN/CREATININE RATIO 27.5 (6.6-38.0); CALCIUM 8.9 MG/DL (8.5-10.1); CHLORIDE 113 MMOL/L (99-107); CREATININE 3.74 MG/DL (0.40-0.90); GLUCOSE 105 MG/DL (70-104); MAGNESIUM 2.9 MG/DL (1.5-2.4); POTASSIUM 3.5 MMOL/L (3.5-5.1); SODIUM 148 MMOL/L (135-145); TOTAL CARBON DIOXIDE 24.6 MMOL/L (24-32); eGFR 12 ML/MIN
[2018-09-12 05:03] LABS: BASOPHILS % (AUTO) 0 % (0-1); EOSINOPHILS # (AUTO) 0.2 X10'3 (0-0.9); EOSINOPHILS % (AUTO) 1.8 % (0-6); HEMOGLOBIN 7.4 g/dl (12.0-16.0); LYMPHOCYTES # (AUTO) 0.6 X10'3 (1.1-4.8); MEAN CORPUSCULAR HEMOGLOBIN 29.5 PG (27.0-31.0); MEAN CORPUSCULAR HGB CONC 33.6 g/dL (33.0-36.5); MEAN CORPUSCULAR VOLUME 87.6 FL (78-98); MEAN PLATELET VOLUME 7.4 FL (7.4-10.4); MONOCYTES # (AUTO) 0.6 X10'3 (0-0.9); NEUTROPHILS # (AUTO) 10.5 X10'3 (1.8-7.7); NEUTROPHILS % (AUTO) 88.2 % (42-75); PLATELET COUNT 142 X10'3 (140-440); RED CELL DISTRIBUTION WIDTH 17.6 % (11.5-14.5); WHITE BLOOD COUNT 11.9 X10'3 (4.5-11.0)
--- NOTE | 2018-09-12 05:07 | NUR ---
pt resting appears comfortable
[2018-09-12 05:10] LABS: HEMATOCRIT 21.9 % (35.0-45.0)
--- NOTE | 2018-09-12 05:20 | NUR ---
Dr Hu notified of critical H&H of 7.4 and 21.9 and no new orders received.
--- NOTE | 2018-09-12 05:51 | NUR ---
pt resting without changes.
--- NOTE | 2018-09-12 06:25 | NUR ---
Patient in room JOSUE 346. I have received report from VONDA Agee and had the opportunity to ask questions and assume patient care.
--- NOTE | 2018-09-12 06:51 | NUR ---
Problems reprioritized. Patient report given, questions answered & plan of care reviewed with MELINDA FERRARI AND DURING REPORT PT REPOSITIONED IN BED AND NOTED INC OF URINE& STOOL. SKIN CARE DONE CALZYME CREAM APPLIED. DENIES PAIN OR DISCOMFORT. PT PLEASANT A/O THIS AM Addendum: 09/12/18 at 0652 by Cyndie Merrill RN Amended: Links added.
[2018-09-12 07:21] VITALS: BP 123/63
[2018-09-12] MEDS: K and/or MAG REPLACEMENT MC SCH (08:00)
[2018-09-12] MEDS: ESOMEPRAZOLE 40 MG VIAL IV SCH ×2 (08:57→22:36)
[2018-09-12] MEDS ORDERED: albuterol 2.5 MG/3 ML nebule NEB PRN (09:25)
[2018-09-12] MEDS ORDERED: LIDOcaine 5% patch TP PRN (09:25)
[2018-09-12 11:55] VITALS: BP 121/63
[2018-09-12] MEDS: carbidoba-levodopa 25-100mg tablet PO SCH ×2 (12:40→21:53)
[2018-09-12 15:17] LABS: BASOPHILS % (AUTO) 0.2 % (0-1); EOSINOPHILS % (AUTO) 0.4 % (0-6); HEMATOCRIT 22.4 % (35.0-45.0); HEMOGLOBIN 7.4 g/dl (12.0-16.0); LYMPHOCYTES # (AUTO) 0.2 X10'3 (1.1-4.8); LYMPHOCYTES % (AUTO) 1.6 % (21-51); MEAN CORPUSCULAR HEMOGLOBIN 29.4 PG (27.0-31.0); MEAN CORPUSCULAR HGB CONC 32.9 g/dL (33.0-36.5); MEAN CORPUSCULAR VOLUME 89.2 FL (78-98); MEAN PLATELET VOLUME 7.7 FL (7.4-10.4); MONOCYTES # (AUTO) 0.5 X10'3 (0-0.9); MONOCYTES % (AUTO) 4.3 % (2-12); NEUTROPHILS # (AUTO) 11.6 X10'3 (1.8-7.7); NEUTROPHILS % (AUTO) 93.5 % (42-75); PLATELET COUNT 144 X10'3 (140-440); RED BLOOD COUNT 2.51 X10'6 (4.20-5.60); RED CELL DISTRIBUTION WIDTH 18.2 % (11.5-14.5); WHITE BLOOD COUNT 12.4 X10'3 (4.5-11.0)
[2018-09-12 18:00] VITALS: BP 109/76
--- NOTE | 2018-09-12 18:05 | NUR ---
Patient in room JOSUE 346. I have received report from Kaylyn Gallardo and had the opportunity to ask questions and assume patient care. Addendum: 09/12/18 at 1929 by Cyndie Merrill RN Amended: Links added.
--- NOTE | 2018-09-12 18:15 | NUR ---
Problems reprioritized. Patient report given, questions answered & plan of care reviewed with VONDA Agee.
--- NOTE | 2018-09-12 18:15 | NUR ---
Patient in room JOSUE 346. I have received report from Kaylyn Gallardo and had the opportunity to ask questions and assume patient care. Addendum: 09/12/18 at 1937 by Cyndei Merrill RN Amended: Links added.
--- NOTE | 2018-09-12 19:00 | NUR ---
daughter and sister in with pt and left noted left hand iv leaking and iv turned off.
[2018-09-12] MEDS: ascorbic acid 500mg tablet PO SCH (19:56)
[2018-09-12] MEDS: amantadine 100 MG capsule PO SCH (19:57)
[2018-09-12] MEDS: sodium bicarbonate 650mg tablet PO SCH (19:57)
--- NOTE | 2018-09-12 20:00 | NUR ---
pt given hs meds in applesauce and tolerated well.
[2018-09-12] MEDS ORDERED: [UNRECOGNIZED DRUG - OTHER] PO SCH (21:00)
[2018-09-12] MEDS ORDERED: OMEGA3 PO SCH (21:00)
[2018-09-12] MEDS ORDERED: FATTY ACID PO SCH (21:00)
[2018-09-12] MEDS ORDERED: FLAXSEED PO SCH (21:00)
--- NOTE | 2018-09-12 21:20 | NUR ---
attempt x2 to get an iv on pt nursing supervisor white sugar called and he was able to start one in the right hand dressed it and wrapped in Kerlix. left hand iv dc'd cath intact.
[2018-09-12] MEDS: montelukast 10mg tablet PO SCH (21:53)
--- NOTE | 2018-09-12 22:43 | NUR ---
pt inc of urine and stool and cleaned up.
[2018-09-13] VITALS: BP 176/78
--- NOTE | 2018-09-13 00:30 | NUR ---
pt inc of urine and stool . skin care done positioned to comfort.
--- NOTE | 2018-09-13 02:10 | NUR ---
resting eyes closed appears comfortable.
--- NOTE | 2018-09-13 03:51 | NUR ---
pt resting eyes closed without changes.
[2018-09-13] MEDS: normal saline 1000ml 1,000 ML IV SCH ×2 (04:42→18:40)
[2018-09-13 04:49] LABS: ALBUMIN 2.5 G/DL (3.4-5.0); ANION GAP 14 (8-16); BLOOD UREA NITROGEN 80 MG/DL (7-18); BUN/CREATININE RATIO 25.3 (6.6-38.0); CALCIUM 8.6 MG/DL (8.5-10.1); CHLORIDE 116 MMOL/L (99-107); CREATININE 3.16 MG/DL (0.40-0.90); GLUCOSE 98 MG/DL (70-104); MAGNESIUM 2.5 MG/DL (1.5-2.4); POTASSIUM 3.2 MMOL/L (3.5-5.1); SODIUM 152 MMOL/L (135-145); TOTAL CARBON DIOXIDE 22.4 MMOL/L (24-32); eGFR 14 ML/MIN
--- NOTE | 2018-09-13 04:54 | NUR ---
new iv fluids and tubing hung. inc of urine and small amount of stool. stool now rarry colored when it was brown pumpkin colored before. noted gi odor to it.
--- NOTE | 2018-09-13 05:05 | NUR ---
night summary inc of urine but inc of stool 3 times tonight first time brown and large amt. 2nd time moderated amt brownish orange color 3rd time small dark tarry stool with a gi bleed type smell. pt alert and orientated. 2 hours earlier when turned and changed she had asked for a [employer] coffee shop attendant to come talk to her. she wants to know what gods plan for her is. pt mentation has improved. pleasant answering questions appropriately.
--- NOTE | 2018-09-13 05:58 | NUR ---
pt on right side without changes.
--- NOTE | 2018-09-13 06:24 | NUR ---
Problems reprioritized. Patient report given, questions answered & plan of care reviewed with Radha Gallardo. Addendum: 09/13/18 at 0625 by Cyndie Merrill RN Amended: Links added.
--- NOTE | 2018-09-13 07:00 | NUR ---
Patient in room JOSUE 346. I have received report from VONDA Agee and had the opportunity to ask questions and assume patient care.
[2018-09-13 07:47] LABS: BASOPHILS % (AUTO) 0.1 % (0-1); EOSINOPHILS # (AUTO) 0.2 X10'3 (0-0.9); EOSINOPHILS % (AUTO) 2.1 % (0-6); HEMATOCRIT 22.5 % (35.0-45.0); HEMOGLOBIN 7.6 g/dl (12.0-16.0); LYMPHOCYTES # (AUTO) 0.4 X10'3 (1.1-4.8); LYMPHOCYTES % (AUTO) 4.8 % (21-51); MEAN CORPUSCULAR HEMOGLOBIN 29.6 PG (27.0-31.0); MEAN CORPUSCULAR HGB CONC 33.6 g/dL (33.0-36.5); MEAN CORPUSCULAR VOLUME 88.1 FL (78-98); MEAN PLATELET VOLUME 7.8 FL (7.4-10.4); MONOCYTES # (AUTO) 0.5 X10'3 (0-0.9); MONOCYTES % (AUTO) 5.5 % (2-12); NEUTROPHILS # (AUTO) 7.8 X10'3 (1.8-7.7); NEUTROPHILS % (AUTO) 87.5 % (42-75); PLATELET COUNT 110 X10'3 (140-440); RED BLOOD COUNT 2.55 X10'6 (4.20-5.60); RED CELL DISTRIBUTION WIDTH 17.3 % (11.5-14.5); WHITE BLOOD COUNT 8.9 X10'3 (4.5-11.0)
[2018-09-13 08:00] VITALS: BP 158/68
[2018-09-13] MEDS ORDERED: ZEAXANTHIN PO SCH (08:00)
[2018-09-13] MEDS ORDERED: [UNRECOGNIZED DRUG - OTHER] PO SCH (08:00)
[2018-09-13] MEDS ORDERED: [UNRECOGNIZED DRUG - OTHER] PO SCH (08:00)
[2018-09-13] MEDS: amantadine 100 MG capsule PO SCH ×2 (08:43→20:45)
[2018-09-13] MEDS: atorvastatin 20mg tablet PO SCH (08:44)
[2018-09-13] MEDS: carbidoba-levodopa 25-100mg tablet PO SCH ×3 (08:45→20:46)
[2018-09-13] MEDS: sodium bicarbonate 650mg tablet PO SCH ×2 (08:46→20:52)
[2018-09-13] MEDS: multivitamins, therapeutics tablet PO SCH (08:47)
[2018-09-13] MEDS: ascorbic acid 500mg tablet PO SCH ×2 (08:48→20:51)
[2018-09-13] MEDS: amLODIPine 5mg tablet PO SCH (08:48)
[2018-09-13] MEDS: ESOMEPRAZOLE 40 MG VIAL IV SCH ×2 (08:49→21:07)
[2018-09-13] MEDS: K and/or MAG REPLACEMENT MC SCH (10:33)
--- NOTE | 2018-09-13 10:47 | NUR ---
Dr. Brizuela made aware K3.2 and HGB 7.6. stated can give pt 40 mEq of K and hgb ok, no need for transfusion at this time.
[2018-09-13] MEDS ORDERED: potassium Cl 20 mEq SR tablet PO STA (10:48)
[2018-09-13 11:20] VITALS: BP 131/56
[2018-09-13] MEDS ORDERED: nitroGLYCERIN 0.4mg SUBLingual tab SL PRN (11:55)
[2018-09-13] MEDS ORDERED: metoprolol tartrate 1mg/ml inj IV PRN (11:55)
[2018-09-13] MEDS ORDERED: regadenoson 0.4mg/5ml syringe IV ONE (11:55)
[2018-09-13] MEDS ORDERED: aminophylline 250mg/10ml inj. IV PRN (11:55)
--- NOTE | 2018-09-13 13:18 | NUR ---
Reassessment: Patient's diet has been advanced to regular. PO intake fluctuating 25% and 100% with 75% PO intake at breakfast this morning likely meeting nutrient needs. Pt tolerating diet with no N/V per MD notes and pt with multiple BMs with LBM 09/12. Per MD notes GI bleed likely r/t severe esophagitis and acute metabolic encephalopathy improving, however pt still documented as confused in physical assessment. No nutrition concerns at this time. Will continue to follow. Rec: 1. Continue regular diet 2. monitor for ONS needs 3. wt per rx Addendum: 09/13/18 at [address] Amended: Links added.
[2018-09-13 15:08] LABS: BASOPHILS % (AUTO) 0.1 % (0-1); EOSINOPHILS # (AUTO) 0.2 X10'3 (0-0.9); EOSINOPHILS % (AUTO) 2.1 % (0-6); HEMOGLOBIN 7.2 g/dl (12.0-16.0); LYMPHOCYTES # (AUTO) 0.3 X10'3 (1.1-4.8); LYMPHOCYTES % (AUTO) 2.9 % (21-51); MEAN CORPUSCULAR HGB CONC 33.9 g/dL (33.0-36.5); MEAN CORPUSCULAR VOLUME 88.6 FL (78-98); MEAN PLATELET VOLUME 7.4 FL (7.4-10.4); MONOCYTES # (AUTO) 0.6 X10'3 (0-0.9); MONOCYTES % (AUTO) 6.2 % (2-12); NEUTROPHILS # (AUTO) 9.3 X10'3 (1.8-7.7); NEUTROPHILS % (AUTO) 88.7 % (42-75); PLATELET COUNT 124 X10'3 (140-440); RED CELL DISTRIBUTION WIDTH 17.4 % (11.5-14.5); WHITE BLOOD COUNT 10.5 X10'3 (4.5-11.0)
[2018-09-13 15:12] LABS: HEMATOCRIT 21.2 % (35.0-45.0)
--- NOTE | 2018-09-13 15:20 | NUR ---
MESSAGE to Dr. Brizuela: Amrita Fitzgerald 346B - critical hct 21.2 (previously 22.5) hgb 7.2 (previously 7.6)
--- NOTE | 2018-09-13 17:06 | NUR ---
Pt stable throughout the day. Swallowed pills with ease with applesauce. Ate well today without s/sx of aspiration. c/o minimal abd pain, denied need for intervention. tele d/c'd per MD. hgb 7.2 hct 21.2, Dr. Brizuela aware. K3.2 this AM, replaced with 40 mEq K, pending K recollect s/p replacement. safety maintained moving self in bed throughout the day. pt a&ox4 with intermittent confusion. Pts daughter and sister state that's her baseline. State pt becomes more confused 1st thing in the AM. Pastoral care visited with pt this AM per pt request. Plan for Lexiscan stress test in the AM. NPO after MN and no caffeine after dinner.
[2018-09-13 18:00] VITALS: BP 160/71
--- NOTE | 2018-09-13 18:41 | NUR ---
Problems reprioritized. Patient report given, questions answered & plan of care reviewed with VONDA Flores.
--- NOTE | 2018-09-13 18:43 | NUR ---
Patient in room JOSUE 346. I have received report from VONDA Garcia and had the opportunity to ask questions and assume patient care.
[2018-09-13] MEDS: montelukast 10mg tablet PO SCH (20:45)
[2018-09-14] VITALS (9 sets, daily range): BP systolic 140–166; BP diastolic 69–88
[2018-09-14] MEDS: normal saline 1000ml 1,000 ML IV SCH (04:57)
[2018-09-14 04:59] LABS: BASOPHILS % (AUTO) 0.1 % (0-1); EOSINOPHILS # (AUTO) 0.3 X10'3 (0-0.9); EOSINOPHILS % (AUTO) 3.6 % (0-6); LYMPHOCYTES # (AUTO) 0.6 X10'3 (1.1-4.8); LYMPHOCYTES % (AUTO) 7.1 % (21-51); MEAN CORPUSCULAR HEMOGLOBIN 29.2 PG (27.0-31.0); MEAN CORPUSCULAR HGB CONC 33.6 g/dL (33.0-36.5); MEAN CORPUSCULAR VOLUME 86.8 FL (78-98); MEAN PLATELET VOLUME 7.9 FL (7.4-10.4); MONOCYTES # (AUTO) 0.7 X10'3 (0-0.9); MONOCYTES % (AUTO) 7.5 % (2-12); NEUTROPHILS # (AUTO) 7.3 X10'3 (1.8-7.7); NEUTROPHILS % (AUTO) 81.7 % (42-75); PLATELET COUNT 112 X10'3 (140-440); RED BLOOD COUNT 2.35 X10'6 (4.20-5.60); RED CELL DISTRIBUTION WIDTH 17.2 % (11.5-14.5)
[2018-09-14 05:00] LABS: HEMOGLOBIN 6.9 g/dl (12.0-16.0)
[2018-09-14 05:01] LABS: HEMATOCRIT 20.4 % (35.0-45.0)
[2018-09-14 05:41] LABS: ALBUMIN 2.4 G/DL (3.4-5.0); ANION GAP 13 (8-16); BLOOD UREA NITROGEN 58 MG/DL (7-18); BUN/CREATININE RATIO 22.6 (6.6-38.0); CALCIUM 8.4 MG/DL (8.5-10.1); CHLORIDE 117 MMOL/L (99-107); CREATININE 2.57 MG/DL (0.40-0.90); GLUCOSE 107 MG/DL (70-104); MAGNESIUM 2.3 MG/DL (1.5-2.4); POTASSIUM 3.5 MMOL/L (3.5-5.1); SODIUM 151 MMOL/L (135-145); TOTAL CARBON DIOXIDE 21.3 MMOL/L (24-32); eGFR 18 ML/MIN
--- NOTE | 2018-09-14 06:15 | NUR ---
Problems reprioritized. Patient report given, questions answered & plan of care reviewed with VONDA Wu.
--- NOTE | 2018-09-14 06:40 | NUR ---
Patient in room JOSUE 346. I have received report from VONDA MO and had the opportunity to ask questions and assume patient care.
[2018-09-14] MEDS: sodium bicarbonate 650mg tablet PO SCH ×2 (07:27→21:08)
[2018-09-14] MEDS: multivitamins, therapeutics tablet PO SCH (07:27)
[2018-09-14] MEDS: ascorbic acid 500mg tablet PO SCH ×2 (07:27→21:06)
[2018-09-14] MEDS: atorvastatin 20mg tablet PO SCH (07:27)
[2018-09-14] MEDS: ESOMEPRAZOLE 40 MG VIAL IV SCH ×2 (07:27→21:15)
[2018-09-14] MEDS: amantadine 100 MG capsule PO SCH ×2 (07:27→21:10)
[2018-09-14] MEDS: carbidoba-levodopa 25-100mg tablet PO SCH ×3 (07:27→21:08)
[2018-09-14] MEDS: amLODIPine 5mg tablet PO SCH (07:37)
[2018-09-14] MEDS: K and/or MAG REPLACEMENT MC SCH (08:00)
[2018-09-14] MEDS ORDERED: regadenoson 0.4mg/5ml syringe IV ONE (08:00)
--- NOTE | 2018-09-14 09:41 | NUR ---
SPOKE WITH DR MACIEL, NEW ORDER TO CANCEL STRESS TEST ON PATIENT DUE TO PT GETTING BLOOD
[2018-09-14] MEDS ORDERED: furosemide 40mg/4ml inj IV ONE ×2 (09:50→16:45)
--- NOTE | 2018-09-14 13:00 | NUR ---
Patient reports that when she was attempting to eat lunch she began to have chest pain/ discomfort and became SOB. Patient feels like food " was just coming up." Patient denies that chest pain radiated. Patient unable to describe chest pain/ discomfort. She reports that she no longer feels chest pain or discomfort and not SOB. Blood infusing was disconnected and IV line flushed. 98.2, 162/88, 86, 22, 923LNC. Dr Brizuela was notified and he gave no new orders except that ok to continue infusing blood. Will continue to monitor. Addendum: 09/14/18 at 1334 by Jazmin Walker RN [id number]
--- NOTE | 2018-09-14 18:22 | NUR ---
Patient in room JOSUE 346. I have received report from VONDA Wu and had the opportunity to ask questions and assume patient care.
--- NOTE | 2018-09-14 18:38 | NUR ---
Problems reprioritized. Patient report given, questions answered & plan of care reviewed with VONDA Flores.
[2018-09-14] MEDS: montelukast 10mg tablet PO SCH (21:18)
[2018-09-15] VITALS: BP 136/90
[2018-09-15 04:56] LABS: BASOPHILS % (AUTO) 0.1 % (0-1); EOSINOPHILS # (AUTO) 0.2 X10'3 (0-0.9); EOSINOPHILS % (AUTO) 2.3 % (0-6); HEMATOCRIT 26.1 % (35.0-45.0); HEMOGLOBIN 8.9 g/dl (12.0-16.0); LYMPHOCYTES # (AUTO) 0.7 X10'3 (1.1-4.8); LYMPHOCYTES % (AUTO) 8.2 % (21-51); MEAN CORPUSCULAR HEMOGLOBIN 29.8 PG (27.0-31.0); MEAN CORPUSCULAR HGB CONC 34.2 g/dL (33.0-36.5); MEAN CORPUSCULAR VOLUME 86.9 FL (78-98); MEAN PLATELET VOLUME 8.1 FL (7.4-10.4); MONOCYTES # (AUTO) 0.9 X10'3 (0-0.9); MONOCYTES % (AUTO) 10.4 % (2-12); PLATELET COUNT 111 X10'3 (140-440); RED CELL DISTRIBUTION WIDTH 16.2 % (11.5-14.5); WHITE BLOOD COUNT 8.9 X10'3 (4.5-11.0)
[2018-09-15 05:04] LABS: ALBUMIN 2.7 G/DL (3.4-5.0); ANION GAP 11 (8-16); BLOOD UREA NITROGEN 52 MG/DL (7-18); BUN/CREATININE RATIO 19.5 (6.6-38.0); CALCIUM 8.4 MG/DL (8.5-10.1); CHLORIDE 118 MMOL/L (99-107); CREATININE 2.66 MG/DL (0.40-0.90); GLUCOSE 99 MG/DL (70-104); MAGNESIUM 2.2 MG/DL (1.5-2.4); POTASSIUM 3.3 MMOL/L (3.5-5.1); SODIUM 153 MMOL/L (135-145); TOTAL CARBON DIOXIDE 24.3 MMOL/L (24-32); eGFR 17 ML/MIN
[2018-09-15 06:18] LABS: NUCLEATED RED BLOOD CELLS 2 /100WBC (0-0); PLATELET ESTIMATE DECREASED; TOTAL CELLS COUNTED 100
[2018-09-15 06:19] LABS: SCHISTOCYTES FEW
--- NOTE | 2018-09-15 06:34 | NUR ---
Problems reprioritized. Patient report given, questions answered & plan of care reviewed with VONDA Shelton.
--- NOTE | 2018-09-15 06:34 | NUR ---
Patient in room [facility] 346. I have received report from VONDA Flores and had the opportunity to ask questions and assume patient care.
[2018-09-15 07:00] VITALS: BP 163/84
[2018-09-15] MEDS: K and/or MAG REPLACEMENT MC SCH (08:00)
[2018-09-15] MEDS: ESOMEPRAZOLE 40 MG VIAL IV SCH ×2 (08:42→20:25)
[2018-09-15] MEDS: multivitamins, therapeutics tablet PO SCH (08:42)
[2018-09-15] MEDS: atorvastatin 20mg tablet PO SCH (08:42)
[2018-09-15] MEDS: ascorbic acid 500mg tablet PO SCH ×2 (08:42→20:25)
[2018-09-15] MEDS: amantadine 100 MG capsule PO SCH ×2 (08:42→20:25)
[2018-09-15] MEDS: sodium bicarbonate 650mg tablet PO SCH ×2 (08:42→20:25)
[2018-09-15] MEDS: amLODIPine 5mg tablet PO SCH (08:42)
[2018-09-15] MEDS: carbidoba-levodopa 25-100mg tablet PO SCH ×3 (08:42→20:25)
[2018-09-15 11:00] VITALS: BP 162/85
[2018-09-15] MEDS ORDERED: potassium CL 10mEq/100ml bag 100 ML IV PRN (13:30)
[2018-09-15] MEDS ORDERED: magnesium Cl slow-release 64mg tablet PO PRN (13:30)
[2018-09-15] MEDS ORDERED: magnesium 4gm in 100ml NS 100 ML IV PRN (13:30)
[2018-09-15] MEDS: potassium Cl 20 mEq SR tablet PO PRN ×3 (13:59→22:48)
[2018-09-15] MEDS ORDERED: metoprolol tartrate 1mg/ml inj IV PRN (17:05)
[2018-09-15] MEDS ORDERED: nitroGLYCERIN 0.4mg SUBLingual tab SL PRN (17:05)
[2018-09-15] MEDS ORDERED: aminophylline 250mg/10ml inj. IV PRN (17:05)
[2018-09-15] MEDS ORDERED: regadenoson 0.4mg/5ml syringe IV ONE (17:05)
--- NOTE | 2018-09-15 18:33 | NUR ---
Received to room [], accompanied by MDs [] and surgical crew. Placed on ventilator, to stone fabricator, arterial line and PA line pressure monitored. Chest tubes to suction at 20 cm. Lomas cath to gravity drainage. Dressings are dry and intact. See assessment record. All vasoactive drugs are infusing via central line.
--- NOTE | 2018-09-15 18:33 | NUR ---
Patient in room JOSUE 346. I have received report from Cat FERRARI and had the opportunity to ask questions and assume patient care. Patient is with a visitor in the room and she shows no sign of distress.
--- NOTE | 2018-09-15 18:36 | NUR ---
Problems reprioritized. Patient report given, questions answered & plan of care reviewed with VONDA Munoz.
[2018-09-15 19:00] VITALS: BP 131/67
[2018-09-15] MEDS: montelukast 10mg tablet PO SCH (20:24)
[2018-09-16] VITALS: BP 146/71
[2018-09-16 05:31] LABS: MAGNESIUM 2.2 MG/DL (1.5-2.4)
--- NOTE | 2018-09-16 06:27 | NUR ---
Patient in room [facility]OS[facility] 346. I have received report from VONDA Munoz and had the opportunity to ask questions and assume patient care.
--- NOTE | 2018-09-16 06:29 | NUR ---
Problems reprioritized. Patient report given, questions answered & plan of care reviewed with arabella FERRARI.
[2018-09-16 06:56] LABS: POTASSIUM 3.8 MMOL/L (3.5-5.1)
[2018-09-16 07:00] VITALS: BP 143/67
[2018-09-16] MEDS: ESOMEPRAZOLE 40 MG VIAL IV SCH ×2 (08:00→20:36)
[2018-09-16] MEDS: carbidoba-levodopa 25-100mg tablet PO SCH ×3 (08:00→20:38)
[2018-09-16] MEDS: amLODIPine 5mg tablet PO SCH (08:00)
[2018-09-16] MEDS: K and/or MAG REPLACEMENT MC SCH (08:00)
[2018-09-16 09:29] LABS: BASOPHILS % (AUTO) 0.1 % (0-1); EOSINOPHILS # (AUTO) 0.2 X10'3 (0-0.9); EOSINOPHILS % (AUTO) 1.5 % (0-6); HEMATOCRIT 25.8 % (35.0-45.0); HEMOGLOBIN 8.8 g/dl (12.0-16.0); LYMPHOCYTES # (AUTO) 0.8 X10'3 (1.1-4.8); MEAN CORPUSCULAR HEMOGLOBIN 29.6 PG (27.0-31.0); MEAN CORPUSCULAR HGB CONC 33.9 g/dL (33.0-36.5); MEAN CORPUSCULAR VOLUME 87.3 FL (78-98); MEAN PLATELET VOLUME 8.4 FL (7.4-10.4); MONOCYTES # (AUTO) 1.2 X10'3 (0-0.9); NEUTROPHILS # (AUTO) 8.8 X10'3 (1.8-7.7); NEUTROPHILS % (AUTO) 80.4 % (42-75); PLATELET COUNT 153 X10'3 (140-440); RED BLOOD COUNT 2.96 X10'6 (4.20-5.60); RED CELL DISTRIBUTION WIDTH 16.5 % (11.5-14.5)
[2018-09-16 09:45] LABS: ALANINE AMINOTRANSFERASE 24 U/L (12-78); ALBUMIN 2.9 G/DL (3.4-5.0); ALBUMIN/GLOBULIN RATIO 0.9 (1.1-1.5); ALKALINE PHOSPHATASE 147 IU/L (46-116); ANION GAP 12 (8-16); ASPARTATE AMINO TRANSFERASE 105 U/L (10-37); BILIRUBIN,TOTAL 0.8 MG/DL (0.1-1.0); BLOOD UREA NITROGEN 43 MG/DL (7-18); BUN/CREATININE RATIO 16.5 (6.6-38.0); CALCIUM 8.3 MG/DL (8.5-10.1); CHLORIDE 119 MMOL/L (99-107); CREATININE 2.61 MG/DL (0.40-0.90); GLUCOSE 102 MG/DL (70-104); POTASSIUM 3.8 MMOL/L (3.5-5.1); SODIUM 154 MMOL/L (135-145); TOTAL CARBON DIOXIDE 22.6 MMOL/L (24-32); TOTAL PROTEIN 6.1 G/DL (6.4-8.2); eGFR 18 ML/MIN
[2018-09-16 09:59] LABS: NUCLEATED RED BLOOD CELLS 2 /100WBC (0-0); TOTAL CELLS COUNTED 100
[2018-09-16 10:01] LABS: ANISOCYTOSIS 1+; PLATELET ESTIMATE NORMAL; POLYCHROMASIA 1+
[2018-09-16] MEDS: sodium bicarbonate 650mg tablet PO SCH ×2 (10:23→20:37)
[2018-09-16] MEDS: atorvastatin 20mg tablet PO SCH (10:23)
[2018-09-16] MEDS: multivitamins, therapeutics tablet PO SCH (10:24)
[2018-09-16] MEDS: amantadine 100 MG capsule PO SCH ×2 (10:24→20:37)
[2018-09-16] MEDS: ascorbic acid 500mg tablet PO SCH ×2 (10:25→20:38)
[2018-09-16 11:00] VITALS: BP 180/84
--- NOTE | 2018-09-16 11:00 | NUR ---
Patient worked with PT and the therapist stated that the patients HR was 256, RR 30, and O2 sat in the 80s. Upon assessment of the patient with charge nurse patient RR was 28, O2 85 on 3L, and HR 125. Patient was breathing really heavily. Rapid Response was called and a stat chest x-ray was taken. Dr. Hu was called. Once the RR team arrived patient RR came down to 20 and saturation was 98% on 6 L. HR came down to 90s. Patient was breathing much slowly.
[2018-09-16] MEDS ORDERED: furosemide 10 MG/1 ML 10ml inj IV ONE (12:20)
[2018-09-16] MEDS: dextrose 5%-water 1,000 ML IV SCH (17:17)
--- NOTE | 2018-09-16 18:19 | NUR ---
Problems reprioritized. Patient report given, questions answered & plan of care reviewed with VONDA Munoz.
--- NOTE | 2018-09-16 18:36 | NUR ---
Patient in room JOSUE 346. I have received report from Cat FERRARI and had the opportunity to ask questions and assume patient care. Patient is with family members eating dinner.
[2018-09-16 19:00] VITALS: BP 162/95
[2018-09-16] MEDS: furosemide 40mg/4ml inj IV SCH (20:36)
[2018-09-16] MEDS: montelukast 10mg tablet PO SCH (20:37)
[2018-09-17 02:22] VITALS: BP 153/89
--- NOTE | 2018-09-17 06:43 | NUR ---
Patient in room [facility]OS[facility] 346. I have received report from VONDA Munoz and had the opportunity to ask questions and assume patient care.
[2018-09-17] MEDS: dextrose 5%-water 1,000 ML IV SCH (06:51)
--- NOTE | 2018-09-17 06:53 | NUR ---
Problems reprioritized. Patient report given, questions answered & plan of care reviewed with Cat FERRARI.
[2018-09-17] MEDS: K and/or MAG REPLACEMENT MC SCH (06:56)
[2018-09-17 07:00] VITALS: BP 170/91
[2018-09-17] MEDS: amLODIPine 5mg tablet PO SCH (08:04)
[2018-09-17] MEDS: multivitamins, therapeutics tablet PO SCH (08:04)
[2018-09-17] MEDS: sodium bicarbonate 650mg tablet PO SCH ×2 (08:04→20:31)
[2018-09-17] MEDS: furosemide 40mg/4ml inj IV SCH ×2 (08:04→20:31)
[2018-09-17] MEDS: carbidoba-levodopa 25-100mg tablet PO SCH ×3 (08:04→20:31)
[2018-09-17] MEDS: ESOMEPRAZOLE 40 MG VIAL IV SCH ×2 (08:04→20:31)
[2018-09-17] MEDS: atorvastatin 20mg tablet PO SCH (08:04)
[2018-09-17] MEDS: ascorbic acid 500mg tablet PO SCH ×2 (08:04→20:31)
[2018-09-17] MEDS: amantadine 100 MG capsule PO SCH ×2 (08:04→20:30)
[2018-09-17 11:00] VITALS: BP 144/77
[2018-09-17 12:33] LABS: BASOPHILS % (AUTO) 0.2 % (0-1); EOSINOPHILS # (AUTO) 0.1 X10'3 (0-0.9); EOSINOPHILS % (AUTO) 1.3 % (0-6); HEMATOCRIT 26.3 % (35.0-45.0); LYMPHOCYTES # (AUTO) 0.4 X10'3 (1.1-4.8); MEAN CORPUSCULAR HEMOGLOBIN 30.1 PG (27.0-31.0); MEAN CORPUSCULAR HGB CONC 34.1 g/dL (33.0-36.5); MEAN CORPUSCULAR VOLUME 88.3 FL (78-98); MEAN PLATELET VOLUME 8.5 FL (7.4-10.4); MONOCYTES # (AUTO) 0.8 X10'3 (0-0.9); MONOCYTES % (AUTO) 8.7 % (2-12); NEUTROPHILS % (AUTO) 85.8 % (42-75); PLATELET COUNT 170 X10'3 (140-440); RED BLOOD COUNT 2.98 X10'6 (4.20-5.60); RED CELL DISTRIBUTION WIDTH 16.7 % (11.5-14.5); WHITE BLOOD COUNT 9.4 X10'3 (4.5-11.0)
[2018-09-17 12:52] LABS: ALANINE AMINOTRANSFERASE 23 U/L (12-78); ALBUMIN 2.8 G/DL (3.4-5.0); ALBUMIN/GLOBULIN RATIO 0.8 (1.1-1.5); ALKALINE PHOSPHATASE 155 IU/L (46-116); ANION GAP 13 (8-16); ASPARTATE AMINO TRANSFERASE 104 U/L (10-37); BILIRUBIN,TOTAL 0.6 MG/DL (0.1-1.0); BLOOD UREA NITROGEN 41 MG/DL (7-18); BUN/CREATININE RATIO 15.9 (6.6-38.0); CALCIUM 7.9 MG/DL (8.5-10.1); CHLORIDE 112 MMOL/L (99-107); CREATININE 2.58 MG/DL (0.40-0.90); SODIUM 150 MMOL/L (135-145); TOTAL CARBON DIOXIDE 25.5 MMOL/L (24-32); TOTAL PROTEIN 6.2 G/DL (6.4-8.2); eGFR 18 ML/MIN
[2018-09-17 13:02] LABS: GLUCOSE 119 MG/DL (70-104)
[2018-09-17] MEDS: potassium Cl 20 mEq SR tablet PO PRN ×2 (13:34→18:18)
[2018-09-17 14:00] LABS: CLARITY,URINE CLEAR (Clear); COLOR,URINE YELLOW (Yellow); GLUCOSE, URINE NEGATIVE (Neg); KETONES,URINE NEGATIVE (Neg); LEUKOCYTE ESTERASE ,URINE NEGATIVE (Neg); NITRITES, URINE NEGATIVE (Neg); OCCULT BLOOD,URINE MODERATE (Neg); PH,URINE 5.5 (4.8-8.0); PROTEIN,URINE 100 mg/dl (Neg); UROBILINOGEN,URINE 0.2 E.U/dL (0.2-1.0)
[2018-09-17 14:07] LABS: TOTAL PROTEIN,URINE RANDOM 135.9 MG/DL
[2018-09-17 14:10] LABS: UA COLLECTION TYPE FOLEY CATH
[2018-09-17 14:12] LABS: BACTERIA,URINE NONE SEEN /HPF (Neg); HYALINE CASTS 0-3 /LPF (NEGATIVE); MUCUS STRANDS FEW /LPF (Neg); SQUAMOUS EPITHELIAL CELL,UR FEW /LPF (FEW); WBC,URINE 0-4 /HPF (0-4)
--- NOTE | 2018-09-17 14:48 | NUR ---
Nutrition consult received. Patient's diet downgraded by MD to pureed. appetite is fair, eating average of 50-74% average. Per PA note pt has been started on D5 and lasix for hypernatremia, sodium is 154. recent EGD revealed esophagitis and gastritis, biopsy taken for Vikas's, and has "lots of erosions" and hiatal hernia, additionally per PA note patient had CT that revealed possible SBO, patient is having on small BMs and smears since admission one week ago. Patient is confused, not able to perform bedside interview. Spoke with bedside RN who reports patient enjoys eating yogurt and per family will drink Ensure at times. Recommend yogurt and ensure on all meals in view of suboptimal food intake, d/w RN and notified MD. Rec: 1. Continue pureed diet 2. ensure enlive with meals, OK with MD 3. wt per rx 4. yogurt with all meals Addendum: 09/17/18 at [address] Amended: Links added.
[2018-09-17] MEDS: Potassium Cl inj 20 MEQ in dextrose 5%-water 990 ML IV SCH (15:31)
[2018-09-17] MEDS: lactose-reduced food (Ensure Enlive) - 237ml bottle PO SCH (18:00)
--- NOTE | 2018-09-17 18:42 | NUR ---
Problems reprioritized. Patient report given, questions answered & plan of care reviewed with Christina RN.
[2018-09-17 19:30] VITALS: BP 140/73
--- NOTE | 2018-09-17 19:30 | NUR ---
pt awaken for assessment; remains drowsy; unable to state where she is or events of reason for admission Addendum: 09/18/18 at 0242 by Inna Paez RN Amended: Links added.
--- NOTE | 2018-09-17 19:30 | NUR ---
on 24 urine collection; kaufman bag with urine is on ice Addendum: 09/18/18 at 0242 by Inna Paez RN Amended: Links added.
[2018-09-17] MEDS: montelukast 10mg tablet PO SCH (20:31)
[2018-09-18] VITALS (8 sets, daily range): BP systolic 110–152; BP diastolic 60–83
[2018-09-18] MEDS: potassium Cl 20 mEq SR tablet PO PRN (00:48)
[2018-09-18] MEDS ORDERED: morphine 4 MG/ML inj SYRINge IV PRN (03:55)
--- NOTE | 2018-09-18 06:35 | NUR ---
Patient in room [facility] 346. I have received report from VONDA Vasquez and had the opportunity to ask questions and assume patient care.
[2018-09-18] MEDS: Potassium Cl inj 20 MEQ in dextrose 5%-water 990 ML IV SCH ×2 (07:13→09:46)
[2018-09-18] MEDS: lactose-reduced food (Ensure Enlive) - 237ml bottle PO SCH ×2 (08:00→13:00)
[2018-09-18] MEDS: K and/or MAG REPLACEMENT MC SCH (08:00)
[2018-09-18 08:19] LABS: BASOPHILS % (AUTO) 0.2 % (0-1); EOSINOPHILS % (AUTO) 0.4 % (0-6); HEMATOCRIT 26.6 % (35.0-45.0); HEMOGLOBIN 8.9 g/dl (12.0-16.0); LYMPHOCYTES # (AUTO) 0.5 X10'3 (1.1-4.8); LYMPHOCYTES % (AUTO) 5.9 % (21-51); MEAN CORPUSCULAR HEMOGLOBIN 29.4 PG (27.0-31.0); MEAN CORPUSCULAR HGB CONC 33.6 g/dL (33.0-36.5); MEAN CORPUSCULAR VOLUME 87.4 FL (78-98); MEAN PLATELET VOLUME 8.3 FL (7.4-10.4); MONOCYTES # (AUTO) 0.7 X10'3 (0-0.9); MONOCYTES % (AUTO) 7.5 % (2-12); NEUTROPHILS # (AUTO) 7.9 X10'3 (1.8-7.7); PLATELET COUNT 195 X10'3 (140-440); RED BLOOD COUNT 3.04 X10'6 (4.20-5.60); RED CELL DISTRIBUTION WIDTH 16.9 % (11.5-14.5); WHITE BLOOD COUNT 9.2 X10'3 (4.5-11.0)
[2018-09-18 08:31] LABS: ALANINE AMINOTRANSFERASE 28 U/L (12-78); ALBUMIN 2.8 G/DL (3.4-5.0); ALBUMIN/GLOBULIN RATIO 0.8 (1.1-1.5); ALKALINE PHOSPHATASE 157 IU/L (46-116); ANION GAP 10 (8-16); ASPARTATE AMINO TRANSFERASE 109 U/L (10-37); BILIRUBIN,TOTAL 0.7 MG/DL (0.1-1.0); BLOOD UREA NITROGEN 45 MG/DL (7-18); BUN/CREATININE RATIO 15.6 (6.6-38.0); CALCIUM 7.6 MG/DL (8.5-10.1); CHLORIDE 112 MMOL/L (99-107); CREATININE 2.88 MG/DL (0.40-0.90); GLUCOSE 142 MG/DL (70-104); POTASSIUM 4.3 MMOL/L (3.5-5.1); SODIUM 146 MMOL/L (135-145); TOTAL CARBON DIOXIDE 24.3 MMOL/L (24-32); TOTAL PROTEIN 6.3 G/DL (6.4-8.2); eGFR 16 ML/MIN
[2018-09-18] MEDS: furosemide 40mg/4ml inj IV SCH ×2 (09:36→20:46)
[2018-09-18] MEDS: amantadine 100 MG capsule PO SCH ×2 (09:36→20:00)
[2018-09-18] MEDS: ESOMEPRAZOLE 40 MG VIAL IV SCH ×2 (09:36→20:46)
[2018-09-18] MEDS: multivitamins, therapeutics tablet PO SCH (09:37)
[2018-09-18] MEDS: ascorbic acid 500mg tablet PO SCH ×2 (09:37→20:00)
[2018-09-18] MEDS: carbidoba-levodopa 25-100mg tablet PO SCH ×3 (09:37→20:45)
[2018-09-18] MEDS: atorvastatin 20mg tablet PO SCH (09:37)
[2018-09-18] MEDS: amLODIPine 5mg tablet PO SCH (09:37)
[2018-09-18] MEDS: sodium bicarbonate 650mg tablet PO SCH ×2 (09:38→20:00)
--- NOTE | 2018-09-18 10:00 | NUR ---
ALINA Daniels notified of see 1000 hourly rounding note.
[2018-09-18 11:21] LABS: MAGNESIUM 1.7 MG/DL (1.5-2.4); TROPONIN I 0.45 NG/ML (0.0-0.05)
[2018-09-18 12:31] LABS: ABG BASE EXCESS -0.7 mmol/L (-2.0-3.0); ABG HCO3 22.1 mmol/L (22.0-26.0); ABG OXYGEN SATURATION 92.9 % (95-98); ABG PCO2 (T) 29.4 mmHg (35.0-45.0); ABG PH (T) 7.494 (7.350-7.450); ABG PO2 (T) 63.8 mmHg (83-108); ALLEN'S TEST Positive; FCOHb 0.3 % (0.5-1.5); FLOW 4 L/min; FMetHb 0.3 % (0.3-1.12); FO2Hb 92.3 % (94-100); TOTAL HEMOGLOBIN 8.9 G/dl (12.0-16.0)
--- NOTE | 2018-09-18 12:44 | NUR ---
Call from [employer] re:pt is continuing to be in Afib/Aflutter since shortly after being placed on tele monitor. Pt to be transferred to PCU as soon as a bed is assigned.
[2018-09-18] MEDS ORDERED: methylPREDNISolone sod succ 125mg/2ml vial IV ONE (14:15)
--- NOTE | 2018-09-18 14:20 | NUR ---
TOOK TELEPHONE REPORT FROM VONDA CHAUDHRY
--- NOTE | 2018-09-18 14:35 | NUR ---
Report given to BUTTONHOLE TACKER
[2018-09-18] MEDS ORDERED: morphine 2 MG/ML inj. syringe IV PRN ×4 (14:40→15:05)
[2018-09-18] MEDS ORDERED: morphine 2 MG/ML inj. syringe IV ONE (14:55)
[2018-09-18] MEDS ORDERED: morphine 2 MG/ML inj. syringe IV STA (15:01)
--- NOTE | 2018-09-18 15:30 | NUR ---
Pt transferred to [facility] room 3029S.
--- NOTE | 2018-09-18 15:46 | NUR ---
RECEIVED FROM SURGICAL FLOOR VIA BED. AGREE WITH PRIOR ASSESSMENT.VISITORS X2 IN.
[2018-09-18 15:52] LABS: UREA NITROGEN 24HR,URINE 6.5 GM/24HR (7-20)
[2018-09-18] MEDS: polyethylene glycol 3350 17gm powd pack PO SCH (15:52)
[2018-09-18] MEDS: CefTRIAXone/D5W-Rocephin 1gm 50 ML IV SCH (16:18)
[2018-09-18] MEDS: ipratropium/albuterol 3ml nebule NEB SCH ×3 (16:57→23:14)
--- NOTE | 2018-09-18 18:33 | NUR ---
Problems reprioritized. Patient report given, questions answered & plan of care reviewed with VONDA GARVEY.
[2018-09-18] MEDS: budesonide 0.5mg/2ml UD nebule IH SCH (19:04)
--- NOTE | 2018-09-18 20:21 | NUR ---
orders from Dr. Hu to change code status. She was at bedside, had discussion with family. All are in agreement. This RN listened in to conversation.
[2018-09-18] MEDS: montelukast 10mg tablet PO SCH (20:46)
[2018-09-19] MEDS: ipratropium/albuterol 3ml nebule NEB SCH ×6 (03:10→23:11)
[2018-09-19] MEDS: Potassium Cl inj 20 MEQ in dextrose 5%-water 990 ML IV SCH (05:29)
--- NOTE | 2018-09-19 06:10 | NUR ---
Patient in room PCU 3025. I have received report from Екатерина FERRARI and had the opportunity to ask questions and assume patient care.
[2018-09-19 06:37] VITALS: BP 137/76
[2018-09-19 06:41] LABS: BASOPHILS % (AUTO) 0 % (0-1); EOSINOPHILS % (AUTO) 0 % (0-6); LYMPHOCYTES # (AUTO) 0.2 X10'3 (1.1-4.8); LYMPHOCYTES % (AUTO) 1.8 % (21-51); MEAN CORPUSCULAR HEMOGLOBIN 29.6 PG (27.0-31.0); MEAN CORPUSCULAR HGB CONC 33.8 g/dL (33.0-36.5); MEAN CORPUSCULAR VOLUME 87.7 FL (78-98); MEAN PLATELET VOLUME 8.8 FL (7.4-10.4); MONOCYTES # (AUTO) 0.4 X10'3 (0-0.9); MONOCYTES % (AUTO) 4.1 % (2-12); NEUTROPHILS # (AUTO) 9.9 X10'3 (1.8-7.7); NEUTROPHILS % (AUTO) 94.1 % (42-75); PLATELET COUNT 169 X10'3 (140-440); RED BLOOD COUNT 2.48 X10'6 (4.20-5.60); RED CELL DISTRIBUTION WIDTH 16.6 % (11.5-14.5); WHITE BLOOD COUNT 10.5 X10'3 (4.5-11.0)
[2018-09-19 06:50] LABS: HEMATOCRIT 21.7 % (35.0-45.0); HEMOGLOBIN 7.3 g/dl (12.0-16.0)
[2018-09-19 06:51] LABS: ALANINE AMINOTRANSFERASE 21 U/L (12-78); ALBUMIN 2.4 G/DL (3.4-5.0); ALBUMIN/GLOBULIN RATIO 0.8 (1.1-1.5); ALKALINE PHOSPHATASE 130 IU/L (46-116); ANION GAP 12 (8-16); ASPARTATE AMINO TRANSFERASE 92 U/L (10-37); BILIRUBIN,TOTAL 0.4 MG/DL (0.1-1.0); BLOOD UREA NITROGEN 48 MG/DL (7-18); BUN/CREATININE RATIO 17.3 (6.6-38.0); CHLORIDE 109 MMOL/L (99-107); CREATININE 2.78 MG/DL (0.40-0.90); GLUCOSE 129 MG/DL (70-104); POTASSIUM 4.4 MMOL/L (3.5-5.1); SODIUM 145 MMOL/L (135-145); TOTAL CARBON DIOXIDE 24.5 MMOL/L (24-32); TOTAL PROTEIN 5.6 G/DL (6.4-8.2); eGFR 16 ML/MIN
[2018-09-19 07:01] LABS: CALCIUM 6.8 MG/DL (8.5-10.1)
[2018-09-19] MEDS: budesonide 0.5mg/2ml UD nebule IH SCH ×2 (07:29→19:19)
[2018-09-19] MEDS: CefTRIAXone/D5W-Rocephin 1gm 50 ML IV SCH (07:56)
[2018-09-19] MEDS: amLODIPine 5mg tablet PO SCH (07:57)
[2018-09-19] MEDS: multivitamins, therapeutics tablet PO SCH (07:57)
[2018-09-19] MEDS: sodium bicarbonate 650mg tablet PO SCH ×2 (07:57→20:00)
[2018-09-19] MEDS: atorvastatin 20mg tablet PO SCH (07:58)
[2018-09-19] MEDS: ascorbic acid 500mg tablet PO SCH ×2 (07:58→20:00)
[2018-09-19] MEDS: furosemide 40mg/4ml inj IV SCH ×2 (07:59→20:00)
[2018-09-19] MEDS ORDERED: azithromycin/NS 500mg/250ml 250 ML IV SCH (08:00)
[2018-09-19] MEDS: K and/or MAG REPLACEMENT MC SCH (08:00)
[2018-09-19] MEDS ORDERED: methylPREDNISolone sod succ 125mg/2ml vial IV SCH (08:00)
[2018-09-19] MEDS: azithromycin 250mg tablet PO SCH (08:03)
[2018-09-19] MEDS: amantadine 100 MG capsule PO SCH ×2 (08:04→20:00)
[2018-09-19] MEDS: carbidoba-levodopa 25-100mg tablet PO SCH ×3 (08:04→21:00)
[2018-09-19] MEDS: polyethylene glycol 3350 17gm powd pack PO SCH (08:05)
[2018-09-19] MEDS: ESOMEPRAZOLE 40 MG VIAL IV SCH ×2 (08:06→20:00)
[2018-09-19] MEDS ORDERED: magnesium 4gm in 100ml NS 100 ML IV PRN (10:10)
[2018-09-19] MEDS ORDERED: magnesium Cl slow-release 64mg tablet PO PRN (10:10)
[2018-09-19] MEDS ORDERED: potassium CL 10mEq/100ml bag 100 ML IV PRN (10:10)
[2018-09-19] MEDS ORDERED: potassium Cl 20 mEq SR tablet PO PRN ×2 (10:10)
[2018-09-19 11:00] VITALS: BP 123/71
--- NOTE | 2018-09-19 12:25 | NUR ---
Reassessment: Pt family requests no meat/veggies at meals r/t concerns for swallowing. RD d/w daughter via phone and sister in person regarding pureed diet texture and ensured that pureed foods will be tolerable PO; both agree OK to now provide meats w/ meals. Family concerned given low weight; pt is visibly cachectic w/ muscle/fat wasting and does qualify for severe malnutrition at this time. Current PO does fluctuate and now receiving ensure enlive, soups, and ensure pudding BIDLD to honor pt/family preferences. Likely meeting needs though given current PO. notified for malnutrition; unable to provide ed given pt AOx1. RD [employer]IAN BSS ordered for proper liquid consistency recs on pureed diet. Will continue to monitor. Rec: 1. Continue pureed/thin diet per [employer]RARIAN 2. ensure enlive with meals, OK with MD 3. wt per rx 4. yogurt with all meals; ensure pudding BIDLD Addendum: 09/19/18 at [address] Amended: Links added.
[2018-09-19 15:00] VITALS: BP 121/67
--- NOTE | 2018-09-19 18:20 | NUR ---
Problems reprioritized. Patient report given, questions answered & plan of care reviewed with Cait FERRARI.
--- NOTE | 2018-09-19 18:23 | NUR ---
Patient in room PCU 3025. I have received report from VONDA Olmstead and had the opportunity to ask questions and assume patient care.
[2018-09-19] MEDS: morphine 2 MG/ML inj. syringe IV PRN (18:54)
[2018-09-19 19:00] VITALS: BP 158/105
--- NOTE | 2018-09-19 19:25 | NUR ---
Sent to [facility] room 3025 B, Amrita Kessler: FYI patients HGB 21.7 wasn't sure if it was reported to you. Patient had morphine for her dyspnea not to DC morphine seen please call to discuss [phone] VONDA Chavira Thank you
[2018-09-19] MEDS: lactobacillus rhamnosus 10,000 MMU CELLS/CAPSULE PO SCH (20:00)
[2018-09-19] MEDS: montelukast 10mg tablet PO SCH (21:00)
--- NOTE | 2018-09-19 21:30 | NUR ---
Spoke with Dr. Hu about patients current status. Informed her that the patient keeps waking up in panic attacks and hyperventilating. Dr. Hu states that she does not want to do any pharmacologic interventions for this patient because she does not know that patient. I will continue to encourage conscious slow breathing and reassure the patient.
--- NOTE | 2018-09-19 22:20 | NUR ---
Scanned all meds previously and forgot to save. Had to double click all meds to administer.
[2018-09-19 23:00] VITALS: BP 142/76
--- NOTE | 2018-09-19 23:50 | NUR ---
Also spoke to Dr. Hu about patients hct of 21.7. I am unsure if this patients critical value was reported to the daytime hospitalist due to no note. Dr. Hu does not advise any interventions at this time.
[2018-09-20] MEDS: morphine 2 MG/ML inj. syringe IV PRN ×5 (00:25→22:39)
--- NOTE | 2018-09-20 01:35 | NUR ---
Patient is desaturating to 88% spo2, placed patient on high flow NC at 8 L and has O2 sat of 90%.
[2018-09-20 02:00] VITALS: BP 114/65
[2018-09-20] MEDS: ipratropium/albuterol 3ml nebule NEB SCH ×6 (03:06→23:00)
[2018-09-20 04:53] LABS: BASOPHILS % (AUTO) 0.1 % (0-1); EOSINOPHILS % (AUTO) 0 % (0-6); LYMPHOCYTES # (AUTO) 0.3 X10'3 (1.1-4.8); LYMPHOCYTES % (AUTO) 1.3 % (21-51); MEAN CORPUSCULAR HGB CONC 33.2 g/dL (33.0-36.5); MEAN CORPUSCULAR VOLUME 87.4 FL (78-98); MEAN PLATELET VOLUME 8.7 FL (7.4-10.4); MONOCYTES # (AUTO) 0.7 X10'3 (0-0.9); MONOCYTES % (AUTO) 3.7 % (2-12); NEUTROPHILS % (AUTO) 94.9 % (42-75); PLATELET COUNT 199 X10'3 (140-440); RED BLOOD COUNT 2.75 X10'6 (4.20-5.60); WHITE BLOOD COUNT 20.1 X10'3 (4.5-11.0)
[2018-09-20 05:09] LABS: ALANINE AMINOTRANSFERASE 17 U/L (12-78); ALBUMIN 2.6 G/DL (3.4-5.0); ALBUMIN/GLOBULIN RATIO 0.7 (1.1-1.5); ALKALINE PHOSPHATASE 182 IU/L (46-116); ANION GAP 14 (8-16); ASPARTATE AMINO TRANSFERASE 102 U/L (10-37); BILIRUBIN,TOTAL 0.4 MG/DL (0.1-1.0); BLOOD UREA NITROGEN 58 MG/DL (7-18); BUN/CREATININE RATIO 18.7 (6.6-38.0); CALCIUM 6.6 MG/DL (8.5-10.1); CHLORIDE 105 MMOL/L (99-107); GLUCOSE 123 MG/DL (70-104); MAGNESIUM 1.8 MG/DL (1.5-2.4); PHOSPHORUS 3.5 MG/DL (2.3-4.5); POTASSIUM 4.6 MMOL/L (3.5-5.1); SODIUM 143 MMOL/L (135-145); TOTAL CARBON DIOXIDE 23.9 MMOL/L (24-32); TOTAL PROTEIN 6.1 G/DL (6.4-8.2); TROPONIN I 0.39 NG/ML (0.0-0.05); eGFR 14 ML/MIN
[2018-09-20 06:00] VITALS: BP 128/72
--- NOTE | 2018-09-20 06:28 | NUR ---
Problems reprioritized. Patient report given, questions answered & plan of care reviewed with VONDA Olmstead .
--- NOTE | 2018-09-20 06:44 | NUR ---
Patient in room PCU 3025 b. I have received report from VONDA Chavira and had the opportunity to ask questions and assume patient care. Pt resting comfortably at this time.
[2018-09-20] MEDS: budesonide 0.5mg/2ml UD nebule IH SCH (07:18)
--- NOTE | 2018-09-20 07:31 | NUR ---
Paged Dr. Hopson regarding pt respiratory status. PAGER ID: [phone] MESSAGE: Re 0M Amrita Fitzgerald. Pt desating not tolerating bipap. 11L highflow 02 sat low 90's,showing increased work or breathing. Has rx for morphine 2mg q4, allergic to ativan. Can we give rx to make more comfortable? Thanks, Nina x [phone]
[2018-09-20] MEDS: amantadine 100 MG capsule PO SCH ×2 (08:00→18:42)
[2018-09-20] MEDS: atorvastatin 20mg tablet PO SCH (08:00)
[2018-09-20] MEDS: sodium bicarbonate 650mg tablet PO SCH ×2 (08:00→18:42)
[2018-09-20] MEDS: multivitamins, therapeutics tablet PO SCH (08:00)
[2018-09-20] MEDS: azithromycin 250mg tablet PO SCH (08:00)
[2018-09-20] MEDS: K and/or MAG REPLACEMENT MC SCH (08:00)
[2018-09-20] MEDS: lactobacillus rhamnosus 10,000 MMU CELLS/CAPSULE PO SCH ×2 (08:00→18:42)
[2018-09-20] MEDS: ascorbic acid 500mg tablet PO SCH ×2 (08:00→18:43)
[2018-09-20] MEDS: ESOMEPRAZOLE 40 MG VIAL IV SCH ×2 (08:00→20:00)
[2018-09-20] MEDS: polyethylene glycol 3350 17gm powd pack PO SCH (08:00)
[2018-09-20] MEDS: carbidoba-levodopa 25-100mg tablet PO SCH ×3 (08:00→18:43)
[2018-09-20] MEDS: amLODIPine 5mg tablet PO SCH (08:00)
--- NOTE | 2018-09-20 08:06 | NUR ---
Paged Dr. Hopson r/t NM Lung Scan. PAGER ID: [phone] MESSAGE: [phone]: Amrita Fitzgerald: Pt ordered NM lung scan. NM stated patient could not tolerate Lexiscan on Wednesday, became anxious, grabbing at camera, etc. NM states pt will need to lie flat for 45 min. whereas Kandis required only 15 min.
[2018-09-20] MEDS: furosemide 40mg/4ml inj IV SCH ×2 (08:57→22:00)
[2018-09-20 09:11] LABS: ABG BASE EXCESS -6.2 mmol/L (-2.0-3.0); ABG HCO3 18.3 mmol/L (22.0-26.0); ABG OXYGEN SATURATION 92.4 % (95-98); ABG PCO2 (T) 31.2 mmHg (35.0-45.0); ABG PH (T) 7.386 (7.350-7.450); ABG PO2 (T) 73.5 mmHg (83-108); ALLEN'S TEST Positive; FCOHb 0.3 % (0.5-1.5); FLOW 24 L/min; FMetHb 0.3 % (0.3-1.12); FO2Hb 91.8 % (94-100); TOTAL HEMOGLOBIN 5.5 G/dl (12.0-16.0)
--- NOTE | 2018-09-20 09:30 | NUR ---
Paged Dr. Hopson r/t ABG Hgb 5.5 PAGER ID: [phone] MESSAGE: Nina FRERARI [phone] Amrita Fitzgerald: ABG showed Hgb 5.5. CBC this AM showed Hgb 8.0/ Hct 24.0. Do you want a repeat hemogram to confirm the Hgb value? Thank you.
[2018-09-20] MEDS ORDERED: vancomycin/NS 1 GM ADD-VANTAGE 250 ML IV ONE (09:55)
[2018-09-20 11:00] VITALS: BP 125/96
[2018-09-20] MEDS ORDERED: haloperidol lactate 5mg/ml inj IM ONE (11:40)
[2018-09-20] MEDS ORDERED: DOBUTamine-DoBUTrex 500mg/D5W 250 ML IV SCH (11:40)
[2018-09-20] MEDS ORDERED: azithromycin/NS 500mg/250ml 250 ML IV SCH (11:40)
[2018-09-20] MEDS ORDERED: furosemide 10 MG/1 ML 10ml inj IV STA (12:13)
[2018-09-20] MEDS: morphine 10mg/ml inj. IV PRN ×5 (12:46→20:10)
[2018-09-20] MEDS: LORazepam 2 mg/ml vial IV PRN ×8 (12:54→22:38)
[2018-09-20] MEDS: busPIRone 5mg tablet PO SCH ×2 (13:00→18:43)
--- NOTE | 2018-09-20 13:44 | NUR ---
Patient placed on Comfort Care. Patient placed on comfort care by Dr. Lara. The patient was given 80mg of lasix to improve respiratory function and comfort while considering the effect the medication will have on the compromised kidneys. The patient is ordered 2mg morphine Q1H PRN dyspnea and 2mg Ativan Q15 min PRN agitation. The patient has a listed allergy of lorazepam, and the MD is aware of this allergy when prescribing the medication. The patient's family states that to their knowledge the patient is not allergic to the medication. The patient also has orders to d/c the BiPAP and administer supplemental oxygen via nasal cannula at 4L/min.
[2018-09-20] MEDS: methylPREDNISolone sod succ/PF 40mg inj. IV SCH ×2 (15:07→22:06)
[2018-09-20] MEDS: cefepime 1GM in D5W 50mL 50 ML IV SCH ×3 (16:00→20:03)
[2018-09-20] MEDS: lactose-reduced food (Ensure Enlive) - 237ml bottle PO SCH ×3 (18:00→18:41)
--- NOTE | 2018-09-20 18:15 | NUR ---
Problems reprioritized. Patient report given, questions answered & plan of care reviewed with Alicia FERRARI.
--- NOTE | 2018-09-20 18:30 | NUR ---
Patient in room PCU 3025. I have received report from ernie and kiah rns and had the opportunity to ask questions and assume patient care.
[2018-09-20] MEDS: montelukast 10mg tablet PO SCH (18:43)
[2018-09-20 19:00] VITALS: BP 131/67
--- NOTE | 2018-09-20 22:06 | NUR ---
PT RESTING COMFORTABLY. LAST DOSE OF 2 MG MORPHINE WAS GIVEN ON DC MED ORDER BECAUSE rn HAD PULLED IT BEFORE PHARMACY ADJUSTED ORDER. PT STILL HAS VALID ORDER FOR MORPHINE 2 MG Q1HR. DAUGHTER HAS REFUSED ALL ABX, SOLUMEDROL. LASIX WAS GIVEN LATE, AFTER NEW IV WAS STARTED. NEEDED NEW IV BECAUSE OLD ONE WAS OBVIOUSLY PAINFUL WITH CHAMBER OF [employer] DIV[employer] MANAGER, FAMILY IN AGREEMENT WITH NEW IV. LASIX GIVEN VIA NEW IV, NO SIGNS OF PAIN NOTED. PT RESTING COMFORTABLY RIGHT NOW, NO SIGNS OF DISTRESS NOTED. 2 FAMILY MEMBERS AT BEDSIDE.
[2018-09-21] MEDS: LORazepam 2 mg/ml vial IV PRN ×7 (00:48→23:34)
[2018-09-21] MEDS: morphine 2 MG/ML inj. syringe IV PRN ×4 (00:49→23:35)
[2018-09-21] MEDS ORDERED: VANCOMYCIN LEVEL IV SCH (03:00)
[2018-09-21] MEDS: ipratropium/albuterol 3ml nebule NEB SCH (03:00)
--- NOTE | 2018-09-21 04:16 | NUR ---
lab orders had not been dc. family declines labs right now, will let us know if they change their minds
[2018-09-21] MEDS ORDERED: vancomycin/NS 1 GM ADD-VANTAGE 250 ML IV PRN (06:00)
--- NOTE | 2018-09-21 06:17 | NUR ---
Problems reprioritized. Patient report given, questions answered & plan of care reviewed with Nina and Dania rns.
--- NOTE | 2018-09-21 06:18 | NUR ---
family does want labs done today, lab notified
--- NOTE | 2018-09-21 06:30 | NUR ---
Patient in room PCU 3025B. I have received report from VONDA Vargas and had the opportunity to ask questions and assume patient care. Pt resting at this time with family at bedside.
--- NOTE | 2018-09-21 06:30 | NUR ---
Patient in room PCU 3025. I have received report from VONDA Vargas and had the opportunity to ask questions and assume patient care.
[2018-09-21 07:00] VITALS: BP 137/73
--- NOTE | 2018-09-21 07:59 | NUR ---
Per Dr Lara's order "DC orders per comfort care" I discontinued medications other than comfort measures and discontinued lab draws.
[2018-09-21] MEDS: morphine 10mg/ml inj. IV PRN ×5 (08:57→21:46)
--- NOTE | 2018-09-21 13:21 | NUR ---
Paged Dr. Hopson, requesting rx for gurgle. PAGER ID: [phone] MESSAGE: Re: [phone] Amrita Fitzgerald. Pt is starting to gurgle, would you consider an rx to reduce this? Thanks. Nina Sharma RN [phone]
--- NOTE | 2018-09-21 18:18 | NUR ---
[place]ee documentation: I have reviewed and agree with all interventions, assessments performed and documented by VONDA Wood.
--- NOTE | 2018-09-21 18:32 | NUR ---
Patient in room PCU 3025. I have received report from Nina FERRARI and Dania RN and had the opportunity to ask questions and assume patient care. Patient on comfort care with family at her side. Will monitor closely.
[2018-09-21 19:00] VITALS: BP 128/76
[2018-09-21] MEDS ORDERED: scopolamine 1.5mg patch.TD72 TD ONE (19:50)
--- NOTE | 2018-09-21 21:30 | NUR ---
Patient's daughter requests cessation of O2 and larger doses of morphine. She is disturbed by her agonal breathing and feels like we are prolonging things by keeping her on oxygen. She wants higher doses of morphine given so her mother will not feel any pain.
[2018-09-22] MEDS: LORazepam 2 mg/ml vial IV PRN ×4 (02:23→10:10)
[2018-09-22] MEDS: morphine 10mg/ml inj. IV PRN ×7 (02:24→14:40)
--- NOTE | 2018-09-22 02:30 | NUR ---
Patient's daughter (Corinna) is upset by the sounds of her Mother's agonal breathing. She believes the sounds are indicative of pain. I explained that agonal breathing is part of the dying process and that 10mg of morphine is a very large dose and that I wouldn't be comfortable giving a larger dose than that. She said "this is supposed to be comfort care and instead its torture." She insisted the O2 be placed back on her mother and wants morning labs drawn.
--- NOTE | 2018-09-22 06:00 | NUR ---
Patient in room PCU 3025. I have received report from VONDA Malik and had the opportunity to ask questions and assume patient care.
--- NOTE | 2018-09-22 06:38 | NUR ---
Problems reprioritized. Patient report given, questions answered & plan of care reviewed with Soledad FERRARI.
--- NOTE | 2018-09-22 09:27 | NUR ---
Reassessment: Patient's code status has been changed to DNR with comfort care. Diet order now NPO. Will continue to follow per comfort care protocol. Rec: 1. Monitor need for additional bowel care per comfort care measures Addendum: 09/22/18 at [address] Amended: Links added.
--- NOTE | 2018-09-22 12:09 | NUR ---
WOC consulted for Low Stefan Scoring. Upon reaching pt's room, was made aware of pt being DNR on Comfort Care at this time. Most recent 's note reveals pt having Agonal breathing and skipper heartbeats. Did not disturb pt for WOC examination at this time.
--- NOTE | 2018-09-22 15:00 | NUR ---
Alex Daniel Rm [age]y feeling anxious. consider anxiolytic?
--- NOTE | 2018-09-22 15:30 | NUR ---
[RN IS TO DOCUMENT YES TO ALL APPLICABLE AREAS Pronouncement of : 1536 1. Time Physician Notified: 1540 2. Date of : 09/22/2018 3. Time of : 153 4. DNR/Withdraw life support documented: Y 5. Monitor strip has been placed on chart: Y 6. Assessment process is of one-minute duration and includes following criteria: a) Patient is unresponsive to all stimuli: Y b) Pupils fixed and non-reactive: Y c) Auscultation of precordium reveals absence of heart tones: Y d) Auscultation of lungs reveals absence of breath sounds: Y e) Absence of blood pressure / all vital signs: Y f) QRS complexes are not present on monitor / EKG strip: Y g) Pacer spikes without capture: n/a 4. Comments: family at bedside when occurred, Daughter, Corinna Kaur was at bedside. 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 All personal belongings were taken by daughter, glasses, gold colored ring, cell phone
--- NOTE | 2018-09-22 15:44 | NUR ---
Dr Hopson notified of time of Dayday Rm [age]y @ 0772
--- NOTE | 2018-09-22 20:20 | NUR ---
PATIENT BODY REMOVED BY [facility]ORTU[employer] ATTENDENTS--PAPERWORK COMPLETED
== END 2018-09-22 20:15 | disposition expired | DRG 682 ==
LOC: ER 23:12 → SUR 3N 09-10 07:49 → CMPBEDREQ 09-12 20:25 → PCU 3S 09-18 15:29
PROVIDERS: ADMIT Internal Medicine; ATTEND Family Medicine
PROC: 30233N1 Transfusion of Nonautologous Red Blood Cells into Peripheral Vein, Percutaneous Approach (ICD-10-PCS; 2018-09-10)
PROC: 0D9670Z Drainage of Stomach with Drainage Device, Via Natural or Artificial Opening (ICD-10-PCS; 2018-09-11)
PROC: 0DB58ZX Excision of Esophagus, Via Natural or Artificial Opening Endoscopic, Diagnostic (ICD-10-PCS; 2018-09-11)
PROC: 0DB68ZX Excision of Stomach, Via Natural or Artificial Opening Endoscopic, Diagnostic (ICD-10-PCS; 2018-09-11)
PROC: 30233N1 Transfusion of Nonautologous Red Blood Cells into Peripheral Vein, Percutaneous Approach (ICD-10-PCS; 2018-09-14)
PROC: 5A09357 Assistance with Respiratory Ventilation, Less than 24 Consecutive Hours, Continuous Positive Airway Pressure (ICD-10-PCS; 2018-09-18)
PROC: 5A09357 Assistance with Respiratory Ventilation, Less than 24 Consecutive Hours, Continuous Positive Airway Pressure (ICD-10-PCS; 2018-09-19)
PROC: 5A09357 Assistance with Respiratory Ventilation, Less than 24 Consecutive Hours, Continuous Positive Airway Pressure (ICD-10-PCS; principal; 2018-09-20)
DX: N17.0 Acute kidney failure with tubular necrosis (principal); G92 Toxic encephalopathy; J18.9 Pneumonia, unspecified organism; J96.90 Respiratory failure, unspecified, unspecified whether with hypoxia or hypercapnia; E43 Unspecified severe protein-calorie malnutrition; S22.41XA Multiple fractures of ribs, right side, initial encounter for closed fracture; K56.609 Unspecified intestinal obstruction, unspecified as to partial versus complete obstruction; J44.0 Chronic obstructive pulmonary disease with (acute) lower respiratory infection; J91.8 Pleural effusion in other conditions classified elsewhere; N39.0 Urinary tract infection, site not specified; D62 Acute posthemorrhagic anemia; E87.0 Hyperosmolality and hypernatremia; K21.0 Gastro-esophageal reflux disease with esophagitis; N18.4 Chronic kidney disease, stage 4 (severe); E78.5 Hyperlipidemia, unspecified; E86.0 Dehydration; G20 Parkinson's disease; I12.9 Hypertensive chronic kidney disease with stage 1 through stage 4 chronic kidney disease, or unspecified chronic kidney disease; I46.9 Cardiac arrest, cause unspecified; K21.9 Gastro-esophageal reflux disease without esophagitis; N28.1 Cyst of kidney, acquired; R29.6 Repeated falls; Z51.5 Encounter for palliative care; W18.39XA Other fall on same level, initial encounter; Z66 Do not resuscitate; K44.9 Diaphragmatic hernia without obstruction or gangrene; K29.70 Gastritis, unspecified, without bleeding; K22.8 Other specified diseases of esophagus; Z88.0 Allergy status to penicillin; Z88.6 Allergy status to analgesic agent; Z88.8 Allergy status to other drugs, medicaments and biological substances; Z88.1 Allergy status to other antibiotic agents; Z79.899 Other long term (current) drug therapy; Y93.89 Activity, other specified; Y92.098 Other place in other non-institutional residence as the place of occurrence of the external cause; Y99.8 Other external cause status; Z68.21 Body mass index [BMI] 21.0-21.9, adult
CPT/HCPCS: 36415; 36600; 43239; 71045; 71250; 74018; 74176; 78452; 80048; 80053; 81001; 82271; 82570; 82803; 83605; 83735; 83880; 84100; 84132; 84145; 84156; 84300; 84484; 84560; 85018; 85025; 86885; 86900; 86901; 86920; 87081; 88305; 88312; 88342; 92508; 92616; 93005; 93306; 94640; 94660; 94760; 96365; 96375; 97110; 97116; 97161; 97530; 97535; 99152; 99285; A4620; A9500; C9113; G0378; J0456; J0692; J0696; J1630; J1940; J1956; J2060; J2250; J2270; J2920; J2930; J3010; J3370; J3480; J7030; J7040; J7070; J7626; P9016